=== PATIENT | female | born 1985 | race Caucasian/White ===

== ENCOUNTER 2019-06-10 10:00 | Observation (INO) | payer BC, SELFPAY ==
[2019-06-10] VITALS (30 sets, daily range): BP systolic 92–119; BP diastolic 53–85; PULSE 58–78; RESP 11–20; TEMP 36.6–37; O2SAT 95–100
--- NOTE | 2019-06-10 10:28 | ED.GENADUL_ITS ---
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 Patient is 7 weeks vaginal delivery. She had a hemorrhage. Patient reports that she lost approximately 7 units of blood and received 7 units transfusion. Patient reports she has been followed as an outpatient and her numbers specifically her H&H to continue to rise. Patient reports persistent vaginal bleeding since the time of her delivery for the last 7 weeks. At this time patient reports light but constant bleeding with no heavy clots. She does report abdominal pain approximately 7 out of 10 at this time. Denies radiating pain into her back. She does report increasing pain on the left compared to the right. Patient was seen in an emergency room yesterday at [facility] and ultimately had an ultrasound and labs for her complaints. Patient was advised that she needs a D&C and to call her doctor. Patient has been working with the wool puller through her but was advised to take her NuvaRing and the bleeding should improve. Patient is now seeking an second opinion and would like a dedicated obstetric specialist. Patient would prefer to transfer her care to [facility] doctors. Reviewed patient's medical record from [facility] yesterday patient had a CBC which revealed an H&H of 11.8 and 37.5 patient had normal electrolyte studies on a BMP. Patient had a urinalysis that was negative for obvious indication of infection positive for uro-bilirubin and blood on her urinalysis yesterday. Patient also had an ultrasound yesterday which reveal findings strongly suggestive of retained products of conception. Status post right oophorectomy. Minimal fluid in the cul-de-sac. The specifics are a uterus measuring 7.9 cm in longitudinal extent by 4.7 cm in the AP dimension by 5.6 cm in the transversely at the fundus. Uterus is retroverted. There is an echogenic vascular material noted within the endometrium measuring 3.0 x 2.2 x 2.4 cm the appearance suggest retained products of conception. Status post right oophorectomy. Left ovary measures 3.5 x 1.0 x 2.9 cm and appears unremarkable. Minimal fluid in the cul-de-sac. Spoke with Dr. eHnley regarding patient's case. She will check the operating room schedule for potential D&C today. Labs and IVs, fluids ordered to prepare for possible surgery. There is room in the operating room schedule today. Patient will have D&C today. [facility] General Date/Time Provider Initiated Documentation: 06/10/19 10:08 . HPI Narrative: Is a 34-year-old woman who presents to the ER today for persistent abdominal pain and vaginal bleeding. Patient is 7 weeks . Vaginal delivery resulting in a hemorrhage which she lost moderate amount of blood and did receive 4 units transfusion after her delivery. Patient reports persistent vaginal bleeding for the last 7 weeks. She has had multiple evaluations by her wool puller. She was advised to begin her NuvaRing and that her bleeding would resolve once her control normalized. Patient persistently frustrated given her pain and bleeding went to the emergency room last night ultimately had ultrasound as well as labs. Her H&H continue to rise however she did have retained products of conception on her ultrasound and was recommended that she have a D&C. Patient comes to [facility] emergency room today trying to arrange for a new obstetric doctor. Patient does report persistent abdominal pain in the lower abdomen and persistent bleeding. Patient reports occasional dizziness. Patient has been eating and drinking without difficulty but does report nausea. No active vomiting. No urinary urgency, frequency or dysuria. No significant bowel changes. 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 REGGIE: 2 Review of Systems All systems reviewed & are unremarkable except as noted in HPI and below Constitutional Constitutional: Denies chills, Reports fatigue, Denies fever(s), Reports headache(s) and Reports malaise ENT Ears, Nose, Mouth, and Throat: Reports headache(s) Gastrointestinal Gastrointestinal: Reports abdominal pain, Reports cramping, Denies diarrhea, Reports nausea and Denies vomiting Genitourinary Genitourinary: Reports abnormal vaginal bleeding, Denies urinary frequency, Denies dysuria, Denies flank pain, Denies vaginal odor and Denies vaginal pruritus Neurologic Neurologic: Reports headache(s) Endocrine Endocrine: Reports fatigue COUNTS INCLUDE 234 BEDS AT THE [facility] Medical History (Updated 06/10/19 @ 13:13 by Tracy Henley MD) Gestational hypertension (Acute) History of diet controlled gestational diabetes mellitus (GDM) (Acute) hemorrhage (Acute) Reactive airway disease (Acute) Secondary to seasonal allergies uses an inhaler as needed Retained products of conception (Acute) Surgical History (Updated 06/10/19 @ 13:10 by Tracy Henley MD) H/O laparoscopy (Chronic) History of cholecystectomy (Chronic) Social History (Updated 06/10/19 @ 13:12 by Tracy Henley MD) Smoking/Tobacco Use Status: Never Alcohol Intake: current Alcohol Intake frequency: holidays/special occasions only Drug use: Never Substance use type: does not use Adopted: No Household members: spouse and children Number of Children: 2 Education Level: college Do you need help understanding health information?: Never 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 Well hydrated. Alert and alert. HENMT: Head nomocephalic, normal to inspection. Atraumatic. Hearing grossly no rmal. External ear canal no erythema or swelling. TM normal bilaterally. Nose normal to inspection. No rhinnorhea. Normal facial exam. Oral mucosa normal. Tounge normal. Dentition normal. Normal posterior oropharynx. Uvula midline. EYES: General normal appearance. Alignment normal. Eyelids normal. Conjunctiva normal. Sclera normal. PERRL. NECK: Normal visual inspection. FROM. No lymphadenopathy. Trachea midline. No Midline tenderness. CHEST: Normal insepection of the chest. RESP: Normal respiratory effort. Speaking full sentences. No cough. No wheezing. No retractions. Clear to auscaltation. Breath sound equal and present bilaterally. CARDIO: No JVD. Normal PMI. Regular Rate. Regular Rhythm. Normal peripheral pulses. GI: Normal inspection of abdomen. No distension. Soft. Mild tenderness in the suprapubic area as well as the left lower abdomen.. Bowel sounds present in all 4 quadrants. No rebound. No gaurding. No peritoneal signs SKIN: Normal. Dry. No rashes. Linea nigra NEURO: Alert and awake. Speech clear. PSYCH: Normal affect. Cooperative. Course Vital Signs Vital signs: Vital Signs Temperature 37 C 06/10/19 10:09 Pulse 70 06/10/19 10:09 Respiratory Rate 18 06/10/19 10:09 Blood Pressure 117/69 06/10/19 10:09 Pulse Oximetry 100 06/10/19 10:09 Temperature 37 C 06/10/19 10:09 Temperature Source Oral 06/10/19 10:09 Pulse 70 06/10/19 10:09 Respiratory Rate 18 06/10/19 10:09 Respiratory Effort Non-Labored 06/10/19 10:17 Blood Pressure 117/69 06/10/19 10:09 Blood Pressure Position Supine 06/10/19 10:09 Pulse Oximetry 100 06/10/19 10:09 Oxygen Delivery Method Room Air 06/10/19 10:09 Oxygen Flow Rate 0 06/10/19 10:09 Pain Level 7 06/10/19 10:09
[2019-06-10 11:18] LABS: Bilirubin Negative (Negative); Blood Negative (Negative); Clarity Clear (Clear); Glucose Negative (Negative); Ketones Negative (Negative); Leukocyte Esterase Negative (Negative); Nitrite Negative (Negative); Urobilinogen 0.2 EU/dL (Up TO 0.2); pH 5.5 (5-8)
[2019-06-10] MEDS: Ondansetron O.D.T. 4 MG TABEF PO ×2 (11:30→18:03)
[2019-06-10] MEDS: Normal Saline Flush 10 ML SYR IVP ×2 (11:30→19:57)
[2019-06-10] MEDS: Normal Saline 1,000 ML 1000 ML IV (11:30)
[2019-06-10 11:38] LABS: Abs Immature Grans 0.01 k/cumm (0.0-0.09); Absolute Basophil Count 0.01 k/cumm (0.0-0.2); Absolute Eosinophil Count 0.06 k/cumm (0.0-0.7); Absolute Lymphocyte Count 1.25 k/cumm (1.2-3.4); Absolute Monocyte Count 0.23 k/cumm (0.11-0.7); Absolute Neutrophil Count 3.21 k/cumm (1.2-6.7); Basophils % 0.2; Eosinophils % 1.3; HCT 38.4 % (36.0-46.0); HGB 11.9 g/dL (12.0-15.5); Immature Grans % 0.2; Lymphocytes % 26.2; Mean Corpuscular Hemoglobin 28.5 pg (27.0-33.0); Mean Corpuscular Volume 92.1 fL (80-95); Mean Platelet Volume 9.8 fL (8.0-11.0); Monocytes % 4.8; Neutrophils % 67.3; Platelet Count 263 x1000/uL (130-400); RBC 4.17 m/cumm (4.00-5.20); White Blood Cell Count 4.77 k/cumm (4.4-10.8)
[2019-06-10 11:47] LABS: PTT Activated 27.2 sec (21.0-31.4); Prothrombin Time 10.1 sec (9.3-11.0)
[2019-06-10 11:56] LABS: ALT 28 U/L (14-59); AST 27 U/L (15-37); Albumin 4.2 g/dL (3.4-5.0); Alkaline Phosphatase 79 U/L (46-116); Anion Gap 8.9 mmol/L (3-11); BUN 12 mg/dL (7-18); Bilirubin, Total 0.5 mg/dL (0.2-1.0); CO2 26.1 mmol/L (21.0-32.0); CREATININE 0.86 mg/dL (0.55-1.02); Calcium 9.1 mg/dL (8.5-10.1); Chloride 105 mmol/L (98-107); Glucose 82 mg/dL (70-100); Potassium 4.5 mmol/L (3.5-5.1); Sodium 140 mmol/L (136-145)
[2019-06-10] MEDS: Normal Saline 1,000 ML 125 ML IV (12:30)
--- NOTE | 2019-06-10 13:03 | W.PM.HP.N ---
Date of service: 06/10/19 Time of Service: 13:03 Assessment and Plan Assessment and plan (1) Retained products of conception: Status: Acute Assessment and plan: I reviewed the patient's ultrasound report from [facility] obtained yesterday. Her current symptoms of daily bleeding increasing uterine tenderness have prompted me to recommend a repeat D&C I have contacted the ultrasound department so that I may utilize ultrasound guidance at the time of the procedure. She was informed of the risk of procedure including the risk of puncture to the uterus infection damage to surrounding structures including bowel bladder and blood vessels. She is aware the need for larger incision worse any of these comp occasions occur. She will receive antibiotics prior to and after the procedure. Informed consent was obtained and her questions were answered. History of Present Illness History of Present Illness Chief Complaint: Uterine bleeding and probable retained products of conception Narrative: Patient is a 34-year-old female who underwent a spontaneous vaginal delivery at [facility] on 04/18/2009 18 delivery was complicated by hemorrhage requiring transfusion 4 units packed red blood cells and a D&C for removal of a retained succenturiate lobe of the placenta. Patient's postoperative course has been uncomplicated however she is continued to have bleeding on a daily basis using approximately 2-3 pads per day. No complaint of fever or chills. She started NuvaRing for control last week and began to experience heavier than average bleeding and cramping. A ultrasound performed at [facility] on 06/09/2019 showed probable retained products of conception. Patient decided to transfer her care to [facility] for treatment. She was evaluated in the emergency department and I was consulted to discuss with the patient possibility of a surgery for retained products in the form of a D&C. Review of Systems Constitutional Constitutional: Reports fatigue and Denies fever(s) Cardiovascular Cardiovascular: Reports as per HPI (Tachycardia during has resolved.) Respiratory Respiratory: Reports system reviewed and no additional complaints, except as docu Gastrointestinal Gastrointestinal: Reports system reviewed and no additional complaints, except as docu Genitourinary Genitourinary: Reports abnormal vaginal bleeding, Reports light periods (Daily bleeding since delivery even after D&C) and Reports pelvic pain (Patient reports uterus is tender) Musculoskeletal Musculoskeletal: Reports system reviewed and no additional complaints, except as docu Integumentary/Breasts Skin/Breast: Reports as per HPI (Breast-feeding without difficulty. No breast engorgement or nipple crackin) Psychiatric Psychiatric: Reports system reviewed and no additional complaints, except as docu Endocrine Endocrine: Reports fatigue [facility] Medical History (Updated 06/10/19 @ 13:13 by Tracy Henley MD) Gestational hypertension (Acute) History of diet controlled gestational diabetes mellitus (GDM) (Acute) hemorrhage (Acute) Reactive airway disease (Acute) Secondary to seasonal allergies uses an inhaler as needed Retained products of conception (Acute) Surgical History (Updated 06/10/19 @ 13:10 by Tracy Henley MD) H/O laparoscopy (Chronic) History of cholecystectomy (Chronic) Social History (Updated 06/10/19 @ 13:12 by Tracy Henley MD) Smoking/Tobacco Use Status: Never Alcohol Intake: current Alcohol Intake frequency: holidays/special occasions only Drug use: Never Substance use type: does not use Adopted: No Household members: spouse and children Number of Children: 2 Education Level: college Do you need help understanding health information?: Never 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 Do you feel safe at home: Yes Do you feel safe in your relationship?: Yes Additional Social history: 04/18/2019 spontaneous vaginal delivery of male named Michael Daughter Hernando 10 years old Meds Home Medications and Allergies Home Medications Medication Instructions Recorded Confirmed Type cetirizine 10 mg PO DAILY PRN 06/10/19 06/10/19 History ferrous sulfate 325 mg PO DAILY 06/10/19 06/10/19 History polyethylene glycol 3350 [Miralax] 17 g PO DAILY 06/10/19 06/10/19 History propranolol 60 mg PO DAILY 06/10/19 06/10/19 History sumatriptan succinate [Imitrex] 100 mg PO ONCE PRN 06/10/19 06/10/19 History Allergies Allergy/AdvReac Type Severity Reaction Status Date / Time No Known Allergies Allergy Unverified 06/10/19 10:06 Exam Const General: no acute distress Nutritional Appearance: average body habitus Orientation: alert, awake and oriented x3 Chest Chest: normal inspection of the chest Resp Effort & Inspection: normal respiratory effort Auscultation: clear to auscultation bilaterally Cardio Rate: regular rate Rhythm: regular rhythm GI Inspection: normal to inspection Palpation: soft and no hepatosplenomegaly (No guarding rebound or masses) General: deferred (Bimanual exam deferred) Skin General skin exam: no rashes or lesions noted Extrem General: normal to inspection, full ROM and normal capillary refill Results Labs Result diagrams: 06/10/19 11:20 06/10/19 11:20 Labs: Laboratory Results - last 24 hr 06/10/19 06/10/19 06/10/19 11:05 11:20 11:20 WBC 4.77 RBC 4.17 Hgb 11.9 L Hct 38.4 MCV 92.1 MCH 28.5 MCHC 31.0 L RDW 14.0 Plt Count 263 MPV 9.8 Immature Gran % 0.2 Neutrophils % 67.3 Lymphocytes % 26.2 Monocytes % 4.8 Eosinophils % 1.3 Basophils % 0.2 Absolute Neutrophils 3.21 Absolute Lymphocytes 1.25 Absolute Monocytes 0.23 Absolute Eosinophils 0.06 Absolute Basophils 0.01 PT INR APTT Sodium 140 Potassium 4.5 Chloride 105 Carbon Dioxide 26.1 Anion Gap 8.9 BUN 12 Creatinine 0.86 Estimated GFR/1.73 m2 >= 60.00 Glucose 82 Calcium 9.1 Total Bilirubin 0.5 AST 27 ALT 28 Alkaline Phosphatase 79 Total Protein 8.0 Albumin 4.2 Urine Color Yellow Urine Clarity Clear Urine pH 5.5 Ur Specific Charlotte 1.020 Urine Protein Negative Urine Ketones Negative Urine Blood Negative Urine Nitrite Negative Urine Bilirubin Negative Urine Urobilinogen 0.2 Ur Leukocyte Esterase Negative Urine Glucose Negative Patient ABO/Rh Antibody Screen 06/10/19 06/10/19 11:20 11:20 WBC RBC Hgb Hct MCV MCH MCHC RDW Plt Count MPV Immature Gran % Neutrophils % Lymphocytes % Monocytes % Eosinophils % Basophils % Absolute Neutrophils Absolute Lymphocytes Absolute Monocytes Absolute Eosinophils Absolute Basophils PT 10.1 INR 1.0 APTT 27.2 Sodium Potassium Chloride Carbon Dioxide Anion Gap BUN Creatinine Estimated GFR/1.73 m2 Glucose Calcium Total Bilirubin AST ALT Alkaline Phosphatase Total Protein Albumin Urine Color Urine Clarity Urine pH Ur Specific Charlotte Urine Protein Urine Ketones Urine Blood Urine Nitrite Urine Bilirubin Urine Urobilinogen Ur Leukocyte Esterase Urine Glucose Patient ABO/Rh A Positive Antibody Screen Negative Last Vital Signs Temp 98.6 F 06/10/19 10:09 Pulse 59 L 06/10/19 11:00 Resp 18 06/10/19 10:09 BP 118/58 L 06/10/19 11:00 Pulse Ox 98 06/10/19 11:01
[2019-06-10] MEDS: Bupivacaine 0.25% Pres-Free 30 ML VIAL (13:46)
[2019-06-10] MEDS: Lactated Ringers 1,000 ML 75 ML IV (13:57)
[2019-06-10] MEDS: Methylergonovine 0.2 MG/ML VIAL (14:00)
--- NOTE | 2019-06-10 14:00 | POCSPONT_PTH ---
PATIENT: Servando Alonso LOC: OBS U#:[id number] AGE/SX: 34/F ROOM: OBS.303 RE06/10/[address]: Tracy Henley : 1985 BED: A DIS: 06/11/2019 SPEC #: [id number] RECD: 06/10/19 17:57 STATUS: MICHELE REQ #: [id number] GEENA: 06/10/19 14:[address]: Tracy Henley DEPT: Surgical Specimen RECD BY: Abimbola Nathan ENTERED: 06/10/19 17:59 SP TYPE: POCSPONT SHAJI DR: Rachael Seth Tissues: 1 - ,SPONTANEOUS Procedures: GROSS AND MICRO LEVEL 4 Comments: [id number]
[2019-06-10] MEDS: fentaNYL 100 MCG/2 ML VIAL IVP (15:33)
[2019-06-10 16:10] LABS: HCT 27.9 % (36.0-46.0); HGB 8.5 g/dL (12.0-15.5)
[2019-06-10] MEDS: Tranexamic Acid 1,000 MG/10 ML VIAL 1000 MG (17:56)
[2019-06-10] MEDS: oxyCODONE 5 mg/Acetaminophen 325 mg TAB PO ×2 (18:08→22:00)
[2019-06-10] MEDS: Ketorolac 30 MG/ML VIAL IVP (19:51)
[2019-06-10] MEDS: Docusate Sodium 100 MG CAP PO (19:51)
--- NOTE | 2019-06-10 19:52 | ROE_ITS ---
Date of service: 06/10/19 Time of Service: 19:52 Operative Note Operative Note DATE OF PROCEDURE: 06/10/19 PRE-OP DIAGNOSIS: Retained products of conception after spontaneous vaginal deliveries on 04/18/2019. POST-OP DIAGNOSIS: same PROCEDURE: Uterine dilation and surgical evacuation of uterine contents with ultrasound guidance ANESTHESIA: MAC ESTIMATED BLOOD LOSS: 500 COMPLICATIONS: None Patient was transported to: PACU Patient's condition: stable Indications: Patient is a 34-year old G3, P2 female who presented to the [facility] emergency department on the day of surgery with a report of daily uterine bleeding after a spontaneous vaginal delivery and hemorrhage secondary to a retained succenturiate lobe of the placenta. Patient had a ultrasound performed at outside hospital yesterday which showed retained products of conception. She traveled to [facility] to requests procedure be performed here. Findings: Uterus retroverted with 2 cm of thickened hypoechoic uterine lining. Solid white tissue was suction curetted and sent to pathology no tissue was obtained from a banjo curettage. After the procedure a repeat ultrasound showed a clear, intact endometrial cavity. Procedure Description: Patient was taken to the operating room via gurney and placed on the operating table in the dorsal supine position where monitored anesthesia care was administered. She was placed in the dorsolithotomy position in yellowfin stirrups prepped and draped in the usual sterile fashion. A surgical timeout was performed she received 1500 mg of cefazolin IV prior to the procedure. A bivalve speculum was placed in the vagina the anterior lip of the cervix was infiltrated with 1 cc of quarter percent Marcaine without epinephrine the anterior lip of the cervix was then grasped with a single-tooth tenaculum. A paracervical block was performed with infiltration of 5 cc of quarter percent Marcaine without epinephrine into the 4 and 8:00 paracervical spaces respectively. Cervix was then sequentially dilated to a maximum of 19 Katz. Uterus was sounded to 9 cm. A preprocedure ultrasound was performed of the u terine cavity with the above-noted findings. A 9 mm suction cannula was placed in the uterine cavity attached to suction in all 4 quadrants of the uterine cavity were sequentially suction curetted. Uterine cavity was then inspected with a transabdominal ultrasound. Banjo curette was used to explore the uterine cavity no further tissue was obtained. Brisk bleeding was noted from within the uterine cavity after uterine massage I am Methergine and IV oxytocin administration patient received IV Tranexamic Acid acid. With continued bleeding I placed a vaginal packing gauze into the uterine cavity repeated the uterine massage, removed the gauze and inserted a Bakri balloon. After successful placement of the Bakri balloon 420 cc of sterile normal saline were instilled into the balloon with a decrease in the brisk bleeding from the uterine cavity. There is an area of bleeding at the 3 o'clock position on the cervical os that was controlled with a [id number] suture of 0 Vicryl. A Villa catheter was placed to gravity drainage and clear john urine returned. After careful observation I felt that there was sufficient hemostasis to transfer the patient in the recovery area. All sponge lap needle counts correct x2
[2019-06-10] MEDS: Lactated Ringers 1,000 ML 125 ML IV (19:57)
[2019-06-10] MEDS: Omeprazole 20 MG CAPCR PO (19:57)
--- NOTE | 2019-06-10 20:44 | W.PM.PROGNOT ---
Date of Service Date of service: 06/10/19 Time of Service: 20:44 Assessment and Plan Assessment and plan (1) History of D&C: Status: Acute Assessment and plan: Plan is to continue to use the battery balloon overnight gradually decrease the amount of fluid within the balloon and if bleeding remains stable to discharge the patient to home tomorrow. A repeat H&H will be performed in the morning. Subjective Subjective Patient reports: other (Heartburn) Interval history since last seen: Patient underwent a cervical dilatation and suction evacuation of uterine contents in the OR's afternoon. Intraoperatively she had an estimated blood loss 500 cc for brisk bleeding after a portion of the retained placenta was removed. Bakri balloon was inserted with effective intraoperative tampade. In the recovery area that she had small amount of oozing from the cervix H&H was obtained and she was transferred to the center for continued observation overnight. Since that time she has tolerating regular diet had no bleeding from the vagina drainage from the drainage portion of the back re-balloon. She called the nursing staff to report some symptoms of heartburn and abdominal pressure. Physical exam was unremarkable 120 cc from [place] balloon were released. Exam Const General: no acute distress Nutritional Appearance: average body habitus Orientation: alert, awake and oriented x3 Resp Effort & Inspection: normal respiratory effort GI Inspection: normal to inspection Palpation: soft, no masses and tender (No guarding or rebound.) suprapubicly (With massage of the uterus.) Rectal Exam - female: deferred External Female Exam: external appearance normal Speculum Exam - Vagina: other (120 cc of normal saline was aspirated from the Bakri balloon with syringe) Skin General skin exam: no rashes or lesions noted Extrem General: normal to inspection, full ROM and normal capillary refill Objective Objective Clinical Data: Abnormal lab results 06/10/19 06/10/19 Range/Units 11:20 16:10 Hgb 11.9 L 8.5 L D (12.0-15.5) g/dL Hct 27.9 L D (36.0-46.0) % MCHC 31.0 L (32.0-36.0) g/dL Vital Signs Temperature 98.2 F 06/10/19 17:15 Temperature Source Oral 06/10/19 17:15 Pulse 71 06/10/19 20:14 Pulse Rhythm Regular 06/10/19 17:36 Respiratory Rate 18 10/29/19 20:14 Respiratory Effort 06/10/19 17:36 Respiratory Depth Normal 06/10/19 17:36 Respiratory Pattern Normal 06/10/19 17:36 Blood Pressure 100/56 L 06/10/19 20:14 Blood Pressure Mean 74 06/10/19 11:00 Blood Pressure Position Supine 06/10/19 10:09 Pulse Oximetry 98 06/10/19 20:14 Respiratory End-tidal CO2 33 06/10/19 16:35 Oxygen Delivery Method Room Air 06/10/19 20:14 Oxygen Flow Rate 0 06/10/19 20:14 Pain Level 5 06/10/19 19:51 Intake & Output 06/09/19 06/10/19 06/10/19 23:59 11:59 23:59 Intake Total 3050.25 / 3050.25 Output Total 650 / 650 Balance 2400.25 / 2400.25 Weight 169 lb 8.568 oz Intake: IV 3050.25 / 3050.25 Output: Drainage 0 / 0 bakri balloon 0 / 0 Urine 150 / 150 Estimated Blood Loss 500 / 500 Other: Urine Color Yellow Urine Appearance Clear Comment PACU. Emesis Description None Laboratory Results WBC 4.77 k/cumm (4.4-10.8) 06/10/19 11:20 RBC 4.17 m/cumm (4.00-5.20) 06/10/19 11:20 Hgb 8.5 g/dL (12.0-15.5) L D 06/10/19 16:10 Hct 27.9 % (36.0-46.0) L D 06/10/19 16:10 MCV 92.1 fL (80-95) 06/10/19 11:20 MCH 28.5 pg (27.0-33.0) 06/10/19 11:20 MCHC 31.0 g/dL (32.0-36.0) L 06/10/19 11:20 RDW 14.0 % (11.7-14.6) 06/10/19 11:20 Plt Count 263 x1000/uL (130-400) 06/10/19 11:20 MPV 9.8 fL (8.0-11.0) 06/10/19 11:20 Immature Gran % 0.2 06/10/19 11:20 Neutrophils % 67.3 06/10/19 11:20 Lymphocytes % 26.2 06/10/19 11:20 Monocytes % 4.8 06/10/19 11:20 Eosinophils % 1.3 06/10/19 11:20 Basophils % 0.2 06/10/19 11:20 Absolute Neutrophils 3.21 k/cumm (1.2-6.7) 06/10/19 11:20 Absolute Lymphocytes 1.25 k/cumm (1.2-3.4) 06/10/19 11:20 Absolute Monocytes 0.23 k/cumm (0.11-0.7) 06/10/19 11:20 Absolute Eosinophils 0.06 k/cumm (0.0-0.7) 06/10/19 11:20 Absolute Basophils 0.01 k/cumm (0.0-0.2) 06/10/19 11:20 PT 10.1 sec (9.3-11.0) 06/10/19 11:20 INR 1.0 (0.9-1.1) 06/10/19 11:20 APTT 27.2 sec (21.0-31.4) 06/10/19 11:20 Sodium 140 mmol/L (136-145) 06/10/19 11:20 Potassium 4.5 mmol/L (3.5-5.1) 06/10/19 11:20 Chloride 105 mmol/L (98-107) 06/10/19 11:20 Carbon Dioxide 26.1 mmol/L (21.0-32.0) 06/10/19 11:20 Anion Gap 8.9 mmol/L (3-11) 06/10/19 11:20 BUN 12 mg/dL (7-18) 06/10/19 11:20 Creatinine 0.86 mg/dL (0.55-1.02) 06/10/19 11:20 Estimated GFR/1.73 m2 >= 60.00 (mL/min/1.73m2) 06/10/19 11:20 Glucose 82 mg/dL (70-100) 06/10/19 11:20 Calcium 9.1 mg/dL (8.5-10.1) 06/10/19 11:20 Total Bilirubin 0.5 mg/dL (0.2-1.0) 06/10/19 11:20 AST 27 U/L (15-37) 06/10/19 11:20 ALT 28 U/L (14-59) 06/10/19 11:20 Alkaline Phosphatase 79 U/L (46-116) 06/10/19 11:20 Total Protein 8.0 g/dL (6.4-8.2) 06/10/19 11:20 Albumin 4.2 g/dL (3.4-5.0) 06/10/19 11:20 Urine Color Yellow (Yellow) 06/10/19 11:05 Urine Clarity Clear (Clear) 06/10/19 11:05 Urine pH 5.5 (5-8) 06/10/19 11:05 Ur Specific [place] 1.020 (1.005-1.025) 06/10/19 11:05 Urine Protein Negative mg/dL (Negative) 06/10/19 11:05 Urine Ketones Negative mg/dL (Negative) 06/10/19 11:05 Urine Blood Negative (Negative) 06/10/19 11:05 Urine Nitrite Negative (Negative) 06/10/19 11:05 Urine Bilirubin Negative (Negative) 06/10/19 11:05 Urine Urobilinogen 0.2 EU/dL (Up TO 0.2) 06/10/19 11:05 Ur Leukocyte Esterase Negative (Negative) 06/10/19 11:05 Urine Glucose Negative mg/dL (Negative) 06/10/19 11:05 Patient ABO/Rh A Positive 06/10/19 11:20 Antibody Screen Negative 06/10/19 11:20
[2019-06-11] MEDS: Ketorolac 30 MG/ML VIAL IVP ×3 (01:55→14:18)
[2019-06-11] MEDS: oxyCODONE 5 mg/Acetaminophen 325 mg TAB PO ×2 (01:55→07:24)
[2019-06-11] MEDS: Lactated Ringers 1,000 ML 125 ML IV (03:32)
[2019-06-11 03:40] VITALS: BP 88/54; PULSE 66; RESP 18; TEMP 36.4; O2SAT 98
[2019-06-11 05:02] VITALS: BP 97/57
[2019-06-11 07:30] VITALS: BP 99/59; PULSE 65; RESP 20; TEMP 36.4; O2SAT 99
[2019-06-11] MEDS: Docusate Sodium 100 MG CAP PO (08:45)
[2019-06-11] MEDS: Normal Saline Flush 10 ML SYR IVP (08:45)
--- NOTE | 2019-06-11 08:53 | W.PM.PROGNOT ---
Date of Service Date of service: 06/11/19 Time of Service: 08:53 Assessment and Plan Assessment and plan (1) History of D&C: Status: Acute Assessment and plan: Vital signs urine output in bleeding from the uterus stable since Bakri balloon placement. We will continue to remove more fluid from the balloon today. I will administer prophylactic antibiotics with the balloon in place. Recheck hematocrit this morning. Assist patient out of bed as tolerated. (2) Retained products of conception: Status: Acute Assessment and plan: I discussed with the patient whether or not additional estrogen was needed after the repeat D&C. I feel that the placement of the back re-balloon should be sufficient to prevent adherence of the uterine fontana or necrotic debris from forming within the uterus. Patient has a NuvaRing that she uses for contraception and she will restart that after discharge. Subjective Subjective Patient reports: still having pain (Uterine cramping) and tolerating a regular diet; denies bowel movement and nausea Interval history since last seen: Patient had 120 cc of the 420 cc in the Bakri balloon removed last evening. No increase in bleeding during the night. Small amount of serosanguineous drainage within the balloon drainage tube this morning. Minimal drainage within the bag. Urine output has remained brisk. She has been tolerating her diet. She reports cramping within the uterus. This morning an additional 120 cc of normal saline was removed from the battery balloon. CBC is currently pending. Exam Const General: no acute distress Orientation: alert, awake and oriented x3 Resp Effort & Inspection: normal respiratory effort GI Palpation: soft and no masses Speculum Exam - Vagina: normal vaginal discharge Skin General skin exam: no rashes or lesions noted Extrem General: normal to inspection, full ROM and normal capillary refill (SCDs are in place) Objective Objective Clinical Data: Abnormal lab results 06/10/19 06/10/19 Range/Units 11:20 16:10 Hgb 11.9 L 8.5 L D (12.0-15.5) g/dL Hct 27.9 L D (36.0-46.0) % MCHC 31.0 L (32.0-36.0) g/dL Vital Signs Temperature 97.5 F L 06/11/19 03:40 Temperature Source Tympanic 06/11/19 03:40 Pulse 66 06/11/19 03:40 Pulse Rhythm Regular 06/10/19 23:15 Respiratory Rate 18 06/11/19 03:40 Respiratory Effort Non-Labored 06/10/19 23:15 Respiratory Depth Normal 06/10/19 23:15 Respiratory Pattern Normal 06/10/19 23:15 Blood Pressure 97/57 L 06/11/19 05:02 Blood Pressure Mean 74 06/10/19 11:00 Blood Pressure Position Supine 06/10/19 10:09 Pulse Oximetry 98 06/11/19 03:40 Respiratory End-tidal CO2 33 06/10/19 16:35 Oxygen Delivery Method Room Air 06/11/19 03:40 Oxygen Flow Rate 0 06/11/19 03:40 Pain Level 7 06/11/19 08:45 Comment 06/11/19 03:40 Intake & Output 06/10/19 06/10/19 06/11/19 11:59 23:59 11:59 Intake Total 3750.25 / 3750.25 945.833 / 945.833 Output Total 1300 / 1300 1000 / 1000 Balance 2450.25 / 2450.25 -54.167 / -54.167 Weight 169 lb 8.568 oz Intake: IV 3750.25 / 3750.25 945.833 / 945.833 Output: Drainage 0 / 0 bakri balloon 0 / 0 Urine 800 / 800 1000 / 1000 Estimated Blood Loss 500 / 500 Other: Urine Color Pale Pale Yellow Yellow Urine Appearance Clear Clear Comment PACU. Emesis Description None Laboratory Results WBC 4.77 k/cumm (4.4-10.8) 06/10/19 11:20 RBC 4.17 m/cumm (4.00-5.20) 06/10/19 11:20 Hgb 8.5 g/dL (12.0-15.5) L D 06/10/19 16:10 Hct 27.9 % (36.0-46.0) L D 06/10/19 16:10 MCV 92.1 fL (80-95) 06/10/19 11:20 MCH 28.5 pg (27.0-33.0) 06/10/19 11:20 MCHC 31.0 g/dL (32.0-36.0) L 06/10/19 11:20 RDW 14.0 % (11.7-14.6) 06/10/19 11:20 Plt Count 263 x1000/uL (130-400) 06/10/19 11:20 MPV 9.8 fL (8.0-11.0) 06/10/19 11:20 Immature Gran % 0.2 06/10/19 11:20 Neutrophils % 67.3 06/10/19 11:20 Lymphocytes % 26.2 06/10/19 11:20 Monocytes % 4.8 06/10/19 11:20 Eosinophils % 1.3 06/10/19 11:20 Basophils % 0.2 06/10/19 11:20 Absolute Neutrophils 3.21 k/cumm (1.2-6.7) 06/10/19 11:20 Absolute Lymphocytes 1.25 k/cumm (1.2-3.4) 06/10/19 11:20 Absolute Monocytes 0.23 k/cumm (0.11-0.7) 06/10/19 11:20 Absolute Eosinophils 0.06 k/cumm (0.0-0.7) 06/10/19 11:20 Absolute Basophils 0.01 k/cumm (0.0-0.2) 06/10/19 11:20 PT 10.1 sec (9.3-11.0) 06/10/19 11:20 INR 1.0 (0.9-1.1) 06/10/19 11:20 APTT 27.2 sec (21.0-31.4) 06/10/19 11:20 Sodium 140 mmol/L (136-145) 06/10/19 11:20 Potassium 4.5 mmol/L (3.5-5.1) 06/10/19 11:20 Chloride 105 mmol/L (98-107) 06/10/19 11:20 Carbon Dioxide 26.1 mmol/L (21.0-32.0) 06/10/19 11:20 Anion Gap 8.9 mmol/L (3-11) 06/10/19 11:20 BUN 12 mg/dL (7-18) 06/10/19 11:20 Creatinine 0.86 mg/dL (0.55-1.02) 06/10/19 11:20 Estimated GFR/1.73 m2 >= 60.00 (mL/min/1.73m2) 06/10/19 11:20 Glucose 82 mg/dL (70-100) 06/10/19 11:20 Calcium 9.1 mg/dL (8.5-10.1) 06/10/19 11:20 Total Bilirubin 0.5 mg/dL (0.2-1.0) 06/10/19 11:20 AST 27 U/L (15-37) 06/10/19 11:20 ALT 28 U/L (14-59) 06/10/19 11:20 Alkaline Phosphatase 79 U/L (46-116) 06/10/19 11:20 Total Protein 8.0 g/dL (6.4-8.2) 06/10/19 11:20 Albumin 4.2 g/dL (3.4-5.0) 06/10/19 11:20 Urine Color Yellow (Yellow) 06/10/19 11:05 Urine Clarity Clear (Clear) 06/10/19 11:05 Urine pH 5.5 (5-8) 06/10/19 11:05 Ur Specific [place] 1.020 (1.005-1.025) 06/10/19 11:05 Urine Protein Negative mg/dL (Negative) 06/10/19 11:05 Urine Ketones Negative mg/dL (Negative) 06/10/19 11:05 Urine Blood Negative (Negative) 06/10/19 11:05 Urine Nitrite Negative (Negative) 06/10/19 11:05 Urine Bilirubin Negative (Negative) 06/10/19 11:05 Urine Urobilinogen 0.2 EU/dL (Up TO 0.2) 06/10/19 11:05 Ur Leukocyte Esterase Negative (Negative) 06/10/19 11:05 Urine Glucose Negative mg/dL (Negative) 06/10/19 11:05 Patient ABO/Rh A Positive 06/10/19 11:20 Antibody Screen Negative 06/10/19 11:20
[2019-06-11 09:21] LABS: HCT 24.3 % (36.0-46.0); HGB 7.3 g/dL (12.0-15.5); Mean Corpuscular Hemoglobin 28.3 pg (27.0-33.0); Mean Corpuscular Volume 94.2 fL (80-95); Mean Platelet Volume 9.4 fL (8.0-11.0); Platelet Count 224 x1000/uL (130-400); RBC 2.58 m/cumm (4.00-5.20); RBC Distribution Width 13.5 % (11.7-14.6); White Blood Cell Count 4.65 k/cumm (4.4-10.8)
[2019-06-11] MEDS: Lactated Ringers 1,000 ML 75 ML IV (10:41)
[2019-06-11] MEDS: Ondansetron O.D.T. 4 MG TABEF PO (11:52)
[2019-06-11 12:10] VITALS: BP 99/58; PULSE 65; RESP 20; TEMP 36.4; O2SAT 99
[2019-06-11] MEDS: HYDROmorphone 2 MG TAB PO (15:01)
[2019-06-11 15:59] LABS: HCT 23.7 % (36.0-46.0); HGB 7.3 g/dL (12.0-15.5)
[2019-06-11 16:00] VITALS: BP 98/61; PULSE 79; RESP 16; TEMP 36.7; O2SAT 98
--- NOTE | 2019-06-11 16:44 | DSE_ITS ---
DS: Diagnosis Discharge Diagnosis (1) History of D&C: Status: Acute (2) Retained products of conception: Status: Acute Discharge Plan Disposition Patient Disposition: HOME Condition: Fair Discharge Details Chief Complaint: [employer] Reason For Visit: RETAINED PRODUCTS OF CONCEPTION Admit Date/Time: 06/10/19 17:00 Admit Provider: Tracy Henley Attending Provider: Tracy Henley Primary Care Provider: Rachael Seth ED Provider: Alana Parkinson Hospital Course Hospital Course: Patient was admitted to the [facility] emergency department on 06/10/2019 after a pelvic ultrasound performed at [facility] showed products of conception within the uterine cavity. Patient had experienced a retained placenta requiring a D&C and transfusion of packed red blood cells after a spontaneous vaginal delivery on 04/18/2019 at [facility]. She continues to have daily uterine bleeding that increased in intensity the week prior to her presentation to [facility]. An emergency room visit at [facility] on 06/09/2018 was when the pelvic ultrasound was performed. Initial evaluation in the emergency department showed her vital signs to be stable with satisfactory recovery of her anemia. Decision was made to proceed with a suction D&C that afternoon. The time of surgery a pelvic ultrasound was performed showing complex intracavitary filling defect consistent with products of conception. Moderate amount of products of conception were obtained during the procedure. Repeat pelvic ultrasound showed no retained products remaining within the uterine cavity. The patient had a brisk amount of bleeding from the uterus after the procedure that did not respond to uterotonic's. As a result of Vicryl balloon was placed and was left in place for approximately 24 hours. The amount of fluid was gradually decreased with the device in place with no increase in uterine bleeding noted. Repeat hematocrit was stable from the morning after surgery she was able to tolerate a regular diet and ambulate successfully after Villa catheter and Vicryl balloon were discontinued. She had some nausea felt to be secondary to narcotic analgesia which resolved with change in the narcotic administered. She will be discharged to home on postop day #1 with instructions to remain out of work for at least a week. She will continue supplemental iron and continue her NuvaRing that she was using for control prior to the procedure. Prescription for Dilaudid will be provided to the patient for postop pain relief in addition to [id number] nonsteroidal anti-inflammatories Home Meds and New Rx's Prescriptions: No Action hydromorphone 2 mg tablet 2 mg PO Q6H MDD 4 PRN (Reason: pain) Qty: 5 RF: 0 polyethylene glycol 3350 [Miralax] 17 gram Powder In Packet 17 g PO DAILY RF: 0 propranolol 60 mg Capsule,Extended Release 24 Hr 60 mg PO DAILY RF: 0 ferrous sulfate 325 mg (65 mg iron) Tablet 325 mg PO DAILY RF: 0 sumatriptan succinate [Imitrex] 100 mg Tablet 100 mg PO ONCE PRNRF: 0 cetirizine 10 mg Capsule 10 mg PO DAILY PRNRF: 0 Discharge Instructions Additional Instructions: Call the office at on 06/12/2019 to make a follow-up appoint with Dr. Henley in approximately [address] Henley has recommended that you remain on work for the next week and has provided a work excuse. Stand Alone Forms: DSU Post Suction D+C Activity:: Activity as Tolerated Equipment/Supplies:: No Equipment Needed Diet:: As Tolerated Discharge Orders Discharge Orders: Discharge Order (Routine); Ordered 06/11/19 Ordered By: Tracy Henley DS: Summary Status at Discharge Functional status at discharge: independent ambulation Overall status at discharge: patient is progressing back to baseline Mental Status: mental status grossly normal Speech and Movement: speech and movement normal Mood: congruent mood Affect: normal affect Exam Const General: no acute distress Nutritional Appearance: average body habitus Orientation: alert, awake and oriented x3 Resp Effort & Inspection: normal respiratory effort GI Inspection: normal to inspection Palpation: soft (Nontender) General: deferred Extrem General: normal to inspection, full ROM and normal capillary refill Psych Mental Status: mental status grossly normal Speech and Movement: speech and movement normal Mood: congruent mood Affect: normal affect DS: Data Vitals/I&O Vitals and I&O: Vital Signs Temperature 97.5 F L 06/11/19 12:10 Temperature Source Oral 06/11/19 12:10 Pulse 65 06/11/19 12:10 Pulse Rhythm Regular 06/11/19 08:30 Respiratory Rate 20 06/11/19 12:10 Respiratory Effort Non-Labored 06/11/19 08:30 Respiratory Depth Normal 06/11/19 08:30 Respiratory Pattern Normal 06/11/19 08:30 Blood Pressure 99/58 L 06/11/19 12:10 Blood Pressure Mean 74 06/10/19 11:00 Blood Pressure Position Supine 06/10/19 10:09 Pulse Oximetry 99 06/11/19 12:10 Respiratory End-tidal CO2 33 06/10/19 16:35 Oxygen Delivery Method Room Air 06/11/19 12:10 Oxygen Flow Rate 0 06/11/19 12:10 Pain Level 8 06/11/19 15:03 Comment 06/11/19 12:30 Intake & Output 06/10/19 06/11/19 06/11/19 23:59 11:59 23:59 Intake Total 3750.25 / 3750.25 1045.833 / 2096.083 1050.25 / 2096.083 Output Total 1300 / 1300 1000 / 3250 2250 / 3250 Balance 2450.25 / 2450.25 45.833 / -1153.917 -1199.75 / -1153.917 Intake: IV 3750.25 / 3750.25 1045.833 / 2096.083 1050.25 / 2096.083 Output: Drainage 0 / 0 bakri balloon 0 / 0 Urine 800 / 800 1000 / 3250 2250 / 3250 Estimated Blood Loss 500 / 500 Other: Urine Color Pale Pale Yellow Yellow Yellow Urine Appearance Clear Clear Comment PACU. Emesis Description None Data Completed and Pending Labs on day of discharge: Labs from last 24 hours 06/11/19 06/11/19 15:55 09:12 WBC 4.65 RBC 2.58 L Hgb 7.3 L 7.3 L Hct 23.7 L 24.3 L MCV 94.2 MCH 28.3 MCHC 30.0 L RDW 13.5 Plt Count 224 MPV 9.4 PFSH Medical History (Updated 06/10/19 @ 13:13 by Tracy Henley MD) Gestational hypertension (Acute) History of diet controlled gestational diabetes mellitus (GDM) (Acute) hemorrhage (Acute) Reactive airway disease (Acute) Secondary to seasonal allergies uses an inhaler as needed Retained products of conception (Acute) Surgical History (Updated 06/10/19 @ 20:50 by Tracy Henley MD) H/O laparoscopy (Chronic) History of cholecystectomy (Chronic) History of D&C (Acute) 06/10/2019 for retained products of conception after 04/18/2019 Social History (Updated 06/10/19 @ 13:12 by Tracy Henley MD) Smoking/Tobacco Use Status: Never Alcohol Intake: current Alcohol Intake frequency: holidays/special occasions only Drug use: Never Substance use type: does not use Adopted: No Household members: spouse and children Number of Children: 2 Education Level: college Do you need help understanding health information?: Never 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
== END 2019-06-11 18:00 | disposition home or self-care (01) ==
LOC: ER 12:33 → DSU 13:26 → SUR 13:26 → DSU 06-11 09:59 → ER 06-11 09:59 → OBS 06-11 10:02 → DSU 06-11 10:23
PROVIDERS: Admitting Provider Obstetrics & Gynecology Gynecology; Emergency Provider Physician Assistant; PCP Pediatrics; Visit Provider Obstetrics & Gynecology Gynecology
PROC: 10D17ZZ Extraction of Products of Conception, Retained, Via Natural or Artificial Opening (ICD-10-PCS; CPT 59841; principal; 2019-06-10 12:30)
DX: O73.0 Retained placenta without hemorrhage (principal)
CPT/HCPCS: 59160; 36415; 80053; 85027; 86850; 86900; 86901; 88305; 96360; 96361; 99221; 99285; NC; 81003; 85014; 85018; 85025; 85610; 85730; 99284; G0378; J0690; J1885; J2210; J2405; J2590; J3010; J3490

== ENCOUNTER 2019-06-13 15:02 | Inpatient (IN) | payer BC, SELFPAY ==
[2019-06-13] VITALS (12 sets, daily range): BP systolic 105–128; BP diastolic 61–81; PULSE 70–84; RESP 14–16; TEMP 36.6–36.7; O2SAT 97–100
[2019-06-13] MEDS: Lactated Ringers 1,000 ML 125 ML IV (15:45)
[2019-06-13] MEDS: oxyCODONE 5 mg/Acetaminophen 325 mg TAB PO (16:00)
--- NOTE | 2019-06-13 16:00 | DI.US_ITS ---
EXAM: US PELVIS TRANSVAGINAL CLINICAL HISTORY: Evaluate hemorrhage TECHNIQUE: Ultrasound performed using standard protocol. Transabdominal and transvaginal exams wer e performed. COMPARISON: No exams were available for comparison FINDINGS: The uterus measures 8.2 x 4.7 x 6.6 cm. The endometrium appears heterogeneous and hypervascular. It m easures 14 millimeters in thickness. The findings could indicate retained products of conception. The re is a moderate amount of free fluid with debris. The left ovary appears normal. The right ovary wa s not seen. The kidneys were not evaluated. IMPRESSION: Thickened hypervascular endometrium could indicate retained products of conception. Moderate free fl uid with debris.
--- NOTE | 2019-06-13 16:49 | DI.VRAD_ITS ---
PROCEDURE INFORMATION: Exam: US Pelvis Limited, Transabdominal and US Pelvis, Transvaginal Exam date and time: 06/13/2019 4:27 PM Clinical history: 34 years old, female; Other: hemorrhage; Pelvic pain; Patient HX: PT is 8 weeks . PT had a d\T\c 8 weeks ago S/P delivery and has had heavy bleeding and anemia ever since. PT has continued to bleed heavily since then. PT had another d\T\c 06/10 and is still bleeding and cramping. TECHNIQUE: Imaging protocol: Real-time transabdominal and transvaginal pelvic ultrasound (limited) with image documentation. Transvaginal imaging was used for better evaluation of the endometrium and adnexa. COMPARISON: No relevant prior studies available. FINDINGS: Uterus/cervix: Mildly thickened endometrium measuring 14 mm in diameter with inhomogeneous echotexture suggesting retained products of conception. Uterus measures 8.2 x 4.7 x 6.6 cm. Inhomogeneous myometrial echotexture without focal mass. Right adnexa: Status post right oophorectomy. Left adnexa: Left ovary measures 2.8 x 1.2 x 1.3 cm. Subcentimeter follicles. Free fluid: Complex free fluid. IMPRESSION: 1. Complex free fluid. 2. Mildly thickened endometrium measuring 14 mm in diameter with inhomogeneous echotexture suggesting retained products of conception. Dictated and Authenticated by: Adalid Fernandes MD. Ordering:CYRUS Crawford MD
[2019-06-13] MEDS: HYDROmorphone 2 MG TAB PO ×2 (18:03→22:41)
[2019-06-13] MEDS: Normal Saline Flush 10 ML SYR IVP (22:26)
--- NOTE | 2019-06-13 23:09 | NUR.NOTE ---
Weighed Pads 2200 - 4ml.
[2019-06-14] MEDS: HYDROmorphone 2 MG TAB PO ×2 (03:53→15:33)
[2019-06-14] MEDS: Propranolol 60 MG CAPCR PO (07:57)
[2019-06-14] MEDS: Ferrous Sulfate 325 MG TAB PO (07:57)
[2019-06-14 08:01] VITALS: BP 121/84; PULSE 72; RESP 16; TEMP 36.6
[2019-06-14 08:41] LABS: HCT 29.8 % (36.0-46.0); HGB 9.6 g/dL (12.0-15.5); Mean Corp. HGB Concentration 32.2 g/dL (32.0-36.0); Mean Platelet Volume 9.4 fL (8.0-11.0); Platelet Count 220 x1000/uL (130-400); RBC 3.31 m/cumm (4.00-5.20); RBC Distribution Width 14.5 % (11.7-14.6); White Blood Cell Count 3.71 k/cumm (4.4-10.8)
[2019-06-14] MEDS: Normal Saline Flush 10 ML SYR IVP ×2 (09:43→20:30)
[2019-06-14 12:28] VITALS: BP 126/89; PULSE 71; RESP 16; TEMP 37.2
[2019-06-14 15:21] VITALS: BP 107/68; PULSE 71; RESP 16; TEMP 36.5; O2SAT 98
--- NOTE | 2019-06-14 18:00 | HPE_ITS ---
Date of service: 06/13/19 Time of Service: 17:00 Assessment and Plan Assessment and plan (1) Blood loss anemia: Status: Acute Assessment and plan: Will admit to the center for transfusion. The patient clinically has symptomatic blood loss anemia despite a [id number] hemoglobin of 7. We will obtain a pelvic ultrasound. Plan to repeat labs once the transfusion is complete and we will further delineate the plan of care at that point. (2) hemorrhage: Status: Acute History of Present Illness History of Present Illness Chief Complaint: Late hemorrhage and blood loss anemia Narrative: This is a 34-year-old female who presented to the office for evaluation. She originally had a normal spontaneous vaginal delivery at [facility] nearly 8 weeks ago. This delivery was complicated by hemorrhage. She presented here with significant vaginal bleeding earlier this week and was taken for a D&C. She did continue to hemorrhage during the D&C and was managed with a Bakri balloon. Repeat hemoglobin post procedure was 7. She did not take a transfusion at that time her bleeding remained well controlled even following removal of the balloon and she was eventually discharged home. She did present to the office today with extreme weakness, lightheadedness and difficulty with walking. She has had some heavy bleeding since the time of her most recent surgery. She denies any fevers or chills but does have some mild cramping abdominal pain. Review of Systems All systems reviewed & are unremarkable except as noted in HPI and below PFSH Medical History (Updated 06/14/19 @ 18:04 by Ty Cornelius MD) Gestational hypertension (Acute) History of diet controlled gestational diabetes mellitus (GDM) (Acute) hemorrhage (Acute) Reactive airway disease (Acute) Secondary to seasonal allergies uses an inhaler as needed Retained products of conception (Acute) Surgical History (Updated 06/10/19 @ 20:50 by Tracy Henley MD) H/O laparoscopy (Chronic) History of cholecystectomy (Chronic) History of D&C (Acute) 06/10/2019 for retained products of conception after 04/18/2019 Social History (Updated 06/10/19 @ 13:12 by Tracy Henley MD) Smoking/Tobacco Use Status: Never Alcohol Intake: current Alcohol Intake frequency: holidays/special occasions only Drug use: Never Substance use type: does not use Adopted: No Household members: spouse and children Number of Children: 2 Education Level: college Do you need help understanding health information?: Never 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 [facility] Sexually active: Yes Do you feel safe at home: Yes Do you feel safe in your relationship?: Yes Additional Social history: 04/18/2019 spontaneous vaginal delivery of male infant named Michael Daughter Todd 10 years old Meds Home Medications and Allergies Home Medications Medication Instructions Recorded Confirmed Type cetirizine 10 mg PO DAILY PRN 06/10/19 06/13/19 History ferrous sulfate 325 mg PO DAILY 06/10/19 06/13/19 History polyethylene glycol 3350 [Miralax] 17 g PO DAILY 06/10/19 06/13/19 History propranolol 60 mg PO DAILY 06/10/19 06/13/19 History sumatriptan succinate [Imitrex] 100 mg PO ONCE PRN 06/10/19 06/13/19 History hydromorphone 2 mg tablet 2 mg PO Q6H PRN #5 tab MDD 4 06/11/19 06/13/19 Rx Allergies Allergy/AdvReac Type Severity Reaction Status Date / Time No Known Allergies Allergy Unverified 06/13/19 12:59 Exam HENMT Other: Conjunctive are pale. Mucosa is dry Resp Auscultation: clear to auscultation bilaterally Cardio Rate: regular rate Rhythm: regular rhythm GI Other: Soft. Mild tenderness to palpation in the low midline abdomen. No rebound or guarding. No peritoneal signs. Results Labs Result diagrams: 06/14/19 19:51 Labs: Laboratory Results - last 24 hr 06/13/19 06/14/19 06/14/19 15:45 08:07 19:51 WBC 3.71 L Cancelled RBC 3.31 L Cancelled Hgb 9.6 L D Cancelled Hct 29.8 L D Cancelled MCV 90.0 Cancelled MCH 29.0 Cancelled MCHC 32.2 Cancelled RDW 14.5 Cancelled Plt Count 220 Cancelled MPV 9.4 Cancelled Immature Gran % Cancelled Neutrophils % Cancelled Band Neutrophils % Cancelled Lymphocytes % Cancelled Atypical Lymphs % Cancelled Monocytes % Cancelled Eosinophils % Cancelled Basophils % Cancelled Metamyelocytes % Cancelled Myelocytes % Cancelled Promyelocytes % Cancelled Absolute Neutrophils Cancelled Absolute Lymphocytes Cancelled Absolute Monocytes Cancelled Absolute Eosinophils Cancelled Absolute Basophils Cancelled Nucleated RBCs Cancelled Differential Comment Cancelled Other Cell Type Cancelled RBC Morphology Cancelled Polychromasia Cancelled Hypochromasia Cancelled Poikilocytosis Cancelled Basophilic Stippling Cancelled Anisocytosis Cancelled Microcytosis Cancelled Macrocytosis Cancelled Spherocytes Cancelled Target Cells Cancelled Tear Drop Cells Cancelled Ovalocytes Cancelled Stomatocytes Cancelled [place] Bodies Cancelled [place] Cells Cancelled Acanthocytes (Spur) Cancelled Schistocytes Cancelled Patient ABO/Rh A Positive Antibody Screen Negative Crossmatch See Detail Last Vital Signs Temp 97.7 F 06/14/19 15:21 Pulse 71 06/14/19 15:21 Resp 16 06/14/19 15:21 BP 107/68 06/14/19 15:21 Pulse Ox 98 06/14/19 15:21
--- NOTE | 2019-06-14 18:05 | PGE_ITS ---
Date of Service Date of service: 06/14/19 Time of Service: 18:10 Assessment and Plan Assessment and plan (1) Blood loss anemia: Status: Acute Assessment and plan: She was observed carefully overnight and through the day today out of concern for the material still within the endometrial cavity. As she has not been symptomatic and her bleeding has been minimal we will forego consideration of a repeat D&C at this point. More than likely this represents a small amount of organized clot. Should her bleeding become heavy or should she develop fevers or chills I would consider D&C at that point. In terms of the free fluid outside of the uterus I believe that this likely represents retrograde expulsion of blood from when the Bakri balloon was placed several days ago. The patient has no signs of acute intra-abdominal bleeding on clinical exam. Her hemoglobin has remained stable on repeat draw. Plan to monitor her an additional night but if her bleeding remains minimal and lab values also remained stable I would consider discharge home tomorrow. (2) hemorrhage: Status: Acute (3) History of D&C: Status: Acute Subjective Subjective Interval history since last seen: The patient did have a pelvic ultrasound which demonstrated some material within the endometrial cavity which could either be organized clot or retained products of conception. The patient is not bleeding heavily at this point but does have some continued abdominal pain. In addition on the pelvic ultrasound there was a moderate amount of free fluid noted with layering in the cul-de-sac also suggestive of blood and clots. She has remained afebrile and bleeding has been minimal. She reports that she did feel markedly better after the blood transfusion but today still did not feel 100%. She reports feeling tired and weak. Exam GI Other: Mild tenderness to palpation in the low midline abdomen. No significant clinical change from her previous exam yesterday. Objective Objective Clinical Data: Abnormal lab results 06/13/19 06/14/19 Range/Units 15:45 08:07 WBC 3.71 L (4.4-10.8) k/cumm RBC 3.31 L (4.00-5.20) m/cumm Hgb 9.6 L D (12.0-15.5) g/dL Hct 29.8 L D (36.0-46.0) % Crossmatch See Detail Vital Signs Temperature 97.7 F 06/14/19 15:21 Temperature Source Oral 06/14/19 15:21 Pulse 71 06/14/19 15:21 Pulse Rhythm Regular 06/14/19 15:22 Respiratory Rate 16 06/14/19 15:21 Respiratory Effort 06/14/19 15:22 Respiratory Depth Normal 06/14/19 15:22 Respiratory Pattern Normal 06/14/19 15:22 Blood Pressure 107/68 06/14/19 15:21 Pulse Oximetry 98 06/14/19 15:21 Oxygen Delivery Method Room Air 06/14/19 15:21 Oxygen Flow Rate 0 06/14/19 15:21 Pain Level 7 06/14/19 15:33 Comment 06/13/19 16:35 Intake & Output 06/13/19 06/14/19 06/14/19 23:59 11:59 23:59 Intake Total 1224 / 1224 1000 / 1000 Output Total 1150 / 1150 400 / 400 Balance 74 / 74 1000 / 600 -400 / 600 Weight 363 lb 12.203 oz Intake: IV 1000 / 1000 Blood Product 1224 / 1224 Rbc Leuko Reduced Unit 618 / 618 [id number] Rbc Leuko Reduced Unit 606 / 606 [id number] Output: Urine 1150 / 1150 400 / 400 Other: Urine Color [place] Yellow Urine Appearance Clear Clear Clear Urine Odor None None Comment Pt states she passed blood clot with this void Voiding Methods Toilet Toilet Laboratory Results WBC Cancelled 06/14/19 19:51 RBC Cancelled 06/14/19 19:51 Hgb Cancelled 06/14/19 19:51 Hct Cancelled 06/14/19 19:51 MCV Cancelled 06/14/19 19:51 MCH Cancelled 06/14/19 19:51 MCHC Cancelled 06/14/19 19:51 RDW Cancelled 06/14/19 19:51 Plt Count Cancelled 06/14/19 19:51 MPV Cancelled 06/14/19 19:51 Immature Gran % Cancelled 06/14/19 19:51 Neutrophils % Cancelled 06/14/19 19:51 Band Neutrophils % Cancelled 06/14/19 19:51 Lymphocytes % Cancelled 06/14/19 19:51 Atypical Lymphs % Cancelled 06/14/19 19:51 Monocytes % Cancelled 06/14/19 19:51 Eosinophils % Cancelled 06/14/19 19:51 Basophils % Cancelled 06/14/19 19:51 Metamyelocytes % Cancelled 06/14/19 19:51 Myelocytes % Cancelled 06/14/19 19:51 Promyelocytes % Cancelled 06/14/19 19:51 Absolute Neutrophils Cancelled 06/14/19 19:51 Absolute Lymphocytes Cancelled 06/14/19 19:51 Absolute Monocytes Cancelled 06/14/19 19:51 Absolute Eosinophils Cancelled 06/14/19 19:51 Absolute Basophils Cancelled 06/14/19 19:51 Nucleated RBCs Cancelled 06/14/19 19:51 Differential Comment Cancelled 06/14/19 19:51 Other Cell Type Cancelled 06/14/19 19:51 RBC Morphology Cancelled 06/14/19 19:51 Polychromasia Cancelled 06/14/19 19:51 Hypochromasia Cancelled 06/14/19 19:51 Poikilocytosis Cancelled 06/14/19 19:51 Basophilic Stippling Cancelled 06/14/19 19:51 Anisocytosis Cancelled 06/14/19 19:51 Microcytosis Cancelled 06/14/19 19:51 Macrocytosis Cancelled 06/14/19 19:51 Spherocytes Cancelled 06/14/19 19:51 Target Cells Cancelled 06/14/19 19:51 Tear Drop Cells Cancelled 06/14/19 19:51 Ovalocytes Cancelled 06/14/19 19:51 Stomatocytes Cancelled 06/14/19 19:51 Esp[place] Bodies Cancelled 06/14/19 19:51 [place] Cells Cancelled 06/14/19 19:51 Acanthocytes (Spur) Cancelled 06/14/19 19:51 Schistocytes Cancelled 06/14/19 19:51 Patient ABO/Rh A Positive 06/13/19 15:45 Antibody Screen Negative 06/13/19 15:45 Crossmatch See Detail 06/13/19 15:45
[2019-06-14 20:30] VITALS: BP 115/72; PULSE 69; RESP 16; TEMP 36.9; O2SAT 99
[2019-06-14] MEDS: Ketorolac 30 MG/ML VIAL IVP (20:30)
[2019-06-15] MEDS: Ketorolac 30 MG/ML VIAL IVP ×2 (01:11→08:40)
[2019-06-15] MEDS: Normal Saline Flush 10 ML SYR IVP ×2 (01:12→08:43)
[2019-06-15 01:19] VITALS: BP 115/71; PULSE 66; RESP 16; TEMP 36.7; O2SAT 98
[2019-06-15 08:05] VITALS: BP 123/72; PULSE 81; RESP 16; TEMP 36.8; O2SAT 98
[2019-06-15 08:05] LABS: Absolute Basophil Count 0.01 k/cumm (0.0-0.2); Absolute Eosinophil Count 0.05 k/cumm (0.0-0.7); Absolute Lymphocyte Count 0.94 k/cumm (1.2-3.4); Absolute Neutrophil Count 1.86 k/cumm (1.2-6.7); Basophils % 0.3; Eosinophils % 1.6; HCT 33.8 % (36.0-46.0); HGB 10.6 g/dL (12.0-15.5); Lymphocytes % 29.7; Mean Corp. HGB Concentration 31.4 g/dL (32.0-36.0); Mean Corpuscular Hemoglobin 28.5 pg (27.0-33.0); Mean Corpuscular Volume 90.9 fL (80-95); Mean Platelet Volume 9.5 fL (8.0-11.0); Monocytes % 9.5; Neutrophils % 58.9; Platelet Count 255 x1000/uL (130-400); RBC 3.72 m/cumm (4.00-5.20); White Blood Cell Count 3.16 k/cumm (4.4-10.8)
[2019-06-15] MEDS: Propranolol 60 MG CAPCR PO (08:39)
--- NOTE | 2019-06-15 09:04 | PGE_ITS ---
Date of Service Date of service: 06/15/19 Time of Service: 09:04 Assessment and Plan Assessment and plan (1) Blood loss anemia: Status: Acute Assessment and plan: S/P 2 units PRBCs administered on HD 1. Doing well. Will plan for discharge home this morning. Follow up in the clinic this week. Will also repeat ultrasound later in the week. (2) History of D&C: Status: Acute (3) hemorrhage: Status: Acute Subjective Subjective Interval history since last seen: Doing well this morning. Feels markedly better today. Tolerating regular diet. No nausea. Minimal vaginal bleeding. Afebrile. Objective Objective Clinical Data: Abnormal lab results 06/15/19 Range/Units 06:45 WBC 3.16 L (4.4-10.8) k/cumm RBC 3.72 L (4.00-5.20) m/cumm Hgb 10.6 L (12.0-15.5) g/dL Hct 33.8 L (36.0-46.0) % MCHC 31.4 L (32.0-36.0) g/dL RDW 15.0 H (11.7-14.6) % Absolute Lymphocytes 0.94 L (1.2-3.4) k/cumm Vital Signs Temperature 98.2 F 06/15/19 08:05 Temperature Source Oral 06/15/19 08:05 Pulse 81 06/15/19 08:05 Pulse Rhythm Regular 06/14/19 20:30 Respiratory Rate 16 06/15/19 08:05 Respiratory Effort Non-Labored 06/14/19 20:30 Respiratory Depth Normal 06/14/19 20:30 Respiratory Pattern Normal 06/14/19 20:30 Blood Pressure 123/72 06/15/19 08:05 Pulse Oximetry 98 06/15/19 08:05 Oxygen Delivery Method Room Air 06/15/19 08:05 Oxygen Flow Rate 0 06/15/19 08:05 Pain Level 4 06/15/19 08:40 Comment 06/13/19 16:35 Intake & Output 06/14/19 06/14/19 06/15/19 11:59 23:59 10:59 Intake Total 1000 / 1000 Output Total 400 / 400 Balance 1000 / 600 -400 / 600 Weight 169 lb 8.5 oz Intake: IV 1000 / 1000 Output: Urine 400 / 400 Other: Urine Color Yellow Urine Appearance Clear Clear Urine Odor None Comment Pt states she passed blood clot with this void Voiding Methods Toilet Laboratory Results WBC 3.16 k/cumm (4.4-10.8) L 06/15/19 06:45 RBC 3.72 m/cumm (4.00-5.20) L 06/15/19 06:45 Hgb 10.6 g/dL (12.0-15.5) L 06/15/19 06:45 Hct 33.8 % (36.0-46.0) L 06/15/19 06:45 MCV 90.9 fL (80-95) 06/15/19 06:45 MCH 28.5 pg (27.0-33.0) 06/15/19 06:45 MCHC 31.4 g/dL (32.0-36.0) L 06/15/19 06:45 RDW 15.0 % (11.7-14.6) H 06/15/19 06:45 Plt Count 255 x1000/uL (130-400) 06/15/19 06:45 MPV 9.5 fL (8.0-11.0) 06/15/19 06:45 Immature Gran % 0.0 06/15/19 06:45 Neutrophils % 58.9 06/15/19 06:45 Band Neutrophils % Cancelled 06/14/19 19:51 Lymphocytes % 29.7 06/15/19 06:45 Atypical Lymphs % Cancelled 06/14/19 19:51 Monocytes % 9.5 06/15/19 06:45 Eosinophils % 1.6 06/15/19 06:45 Basophils % 0.3 06/15/19 06:45 Metamyelocytes % Cancelled 06/14/19 19:51 Myelocytes % Cancelled 06/14/19 19:51 Promyelocytes % Cancelled 06/14/19 19:51 Absolute Neutrophils 1.86 k/cumm (1.2-6.7) 06/15/19 06:45 Absolute Lymphocytes 0.94 k/cumm (1.2-3.4) L 06/15/19 06:45 Absolute Monocytes 0.30 k/cumm (0.11-0.7) 06/15/19 06:45 Absolute Eosinophils 0.05 k/cumm (0.0-0.7) 06/15/19 06:45 Absolute Basophils 0.01 k/cumm (0.0-0.2) 06/15/19 06:45 Nucleated RBCs Cancelled 06/14/19 19:51 Differential Comment Cancelled 06/14/19 19:51 Other Cell Type Cancelled 06/14/19 19:51 RBC Morphology Cancelled 06/14/19 19:51 Polychromasia Cancelled 06/14/19 19:51 Hypochromasia Cancelled 06/14/19 19:51 Poikilocytosis Cancelled 06/14/19 19:51 Basophilic Stippling Cancelled 06/14/19 19:51 Anisocytosis Cancelled 06/14/19 19:51 Microcytosis Cancelled 06/14/19 19:51 Macrocytosis Cancelled 06/14/19 19:51 Spherocytes Cancelled 06/14/19 19:51 Target Cells Cancelled 06/14/19 19:51 Tear Drop Cells Cancelled 06/14/19 19:51 Ovalocytes Cancelled 06/14/19 19:51 Stomatocytes Cancelled 06/14/19 19:51 [place] Bodies Cancelled 06/14/19 19:51 [place] Cells Cancelled 06/14/19 19:51 Acanthocytes (Spur) Cancelled 06/14/19 19:51 Schistocytes Cancelled 06/14/19 19:51 Patient ABO/Rh A Positive 06/13/19 15:45 Antibody Screen Negative 06/13/19 15:45 Crossmatch See Detail 06/13/19 15:45
--- NOTE | 2019-06-15 09:23 | W.PM.DSUDISC ---
Discharge Plan Disposition Patient Disposition: HOME Condition: Stable Discharge Details Reason For Visit: BLOOD LOSS ANEMIA Admit Date/Time: 06/13/19 15:02 Admit Provider: Ty Cornelius Attending Provider: Ty Cornelius Primary Care Provider: [facility] Course Hospital Course: The patient was admitted for management of symptomatic blood loss anemia following delayed hemorrhage managed with D&C and a Bakri balloon this week. She was transfused 2 units of PRBCs on HD 1. A pelvic ultrasound did demonstrate a region of mixed echogenicity within the endometrium thought to either be either clot or retained POC. Free fluid was also noted outside the uterus but is felt likely related to retrograde hemorrhage through the fallopian tubes when the Bakri balloon was placed. She remained hemodynamically stable throughout admission and afebrile. She is felt suitable for discharge home on HD 3. Will follow up in the clinic this week and repeat ultrasound this week as well. Home Meds and New Rx's Prescriptions: Continued polyethylene glycol 3350 [Miralax] 17 gram Powder In Packet 17 g PO DAILY RF: 0 propranolol 60 mg Capsule,Extended Release 24 Hr 60 mg PO DAILY RF: 0 ferrous sulfate 325 mg (65 mg iron) Tablet 325 mg PO DAILY RF: 0 sumatriptan succinate [Imitrex] 100 mg Tablet 100 mg PO ONCE PRNRF: 0 cetirizine 10 mg Capsule 10 mg PO DAILY PRNRF: 0 Discontinued hydromorphone 2 mg tablet 2 mg PO Q6H MDD 4 PRN (Reason: pain) Qty: 5 RF: 0 Discharge Instructions Activity:: Activity as Tolerated Equipment/Supplies:: No Equipment Needed Diet:: As Tolerated Discharge Orders Discharge Orders: Discharge Order (Routine); Ordered 06/15/19 Ordered By: Ty Cornelius DS: Diagnosis Discharge Diagnosis (1) Blood loss anemia: Status: Acute (2) History of D&C: Status: Acute (3) hemorrhage: Status: Acute
== END 2019-06-15 11:00 | disposition home or self-care (01) | DRG 776 ==
PROVIDERS: Admitting Provider Obstetrics & Gynecology; PCP Pediatrics; Visit Provider Obstetrics & Gynecology
DX: O72.2 Delayed and secondary postpartum hemorrhage (principal); D62 Acute posthemorrhagic anemia; O90.81 Anemia of the puerperium
CPT/HCPCS: 36415; 36430; 85027; 86850; 86900; 86901; 86920; 99223; 99233; 76830; 76856; 85025; J1885; J3490; P9016

== ENCOUNTER 2019-06-18 09:41 | Outpatient (CLI) | payer BC, SELFPAY ==
--- NOTE | 2019-06-18 12:15 | DI.US_ITS ---
EXAM: US PELVIS AND TRANSVAGINAL CLINICAL HISTORY: Late hemorrhage. Reevaluate for POC, D50.0 IRON DEFICIENC ANEMIA SECON ADRIENNE TO BLOOD LOSS (CHRONIC) TECHNIQUE: Ultrasound performed using standard protocol. Pelvic ultrasound was performed transabdo minally and transvaginally. COMPARISON: US PELVIS AND TRANSVAGINAL from 06/13/2019 FINDINGS: Please see the accompanying data sheet for measurements of the pelvic structures. Prior ultrasound o f June 13 showed abnormally thickened heterogeneous endometrium suspicious for retained products of conception. On today's examination, the endometrium is poorly visualized. There is an apparent complex mass-like finding adjacent to the uterine fundus, which may represent an extrauterine resolvi ng hematoma. Mass not excluded. Heterogeneity of the uterine fundus also noted, there is a poorly d efined border between the fundus and the aforementioned suprafundal lesion or collection. Right ovary has been surgically removed. Left ovary has a normal follicular appearance. Small quant ity of free fluid in the cul-de-sac which may be contiguous with the suprauterine collection/mass. IMPRESSION: Approximately 5 cm in diameter complex collection associated with or lying just above the uterine fun dus. The findings are consistent with hematoma. The mass is poorly defined in its uterine border an d the possibility of mass or collection originating from the uterus is not excluded. Additionally, t here is heterogeneity of the fundal uterine myometrium which is nonspecific, possible fibroid versus other mass. Appropriate follow-up studies requested.
[2019-06-18 14:09] LABS: Abs Immature Grans 0.01 k/cumm (0.0-0.09); Absolute Basophil Count 0.02 k/cumm (0.0-0.2); Absolute Eosinophil Count 0.08 k/cumm (0.0-0.7); Absolute Lymphocyte Count 1.33 k/cumm (1.2-3.4); Absolute Monocyte Count 0.45 k/cumm (0.11-0.7); Absolute Neutrophil Count 2.53 k/cumm (1.2-6.7); Basophils % 0.5; Eosinophils % 1.8; HCT 37.6 % (36.0-46.0); HGB 11.9 g/dL (12.0-15.5); Immature Grans % 0.2; Lymphocytes % 30.1; Mean Corp. HGB Concentration 31.6 g/dL (32.0-36.0); Mean Corpuscular Hemoglobin 28.5 pg (27.0-33.0); Mean Corpuscular Volume 90.2 fL (80-95); Mean Platelet Volume 9.5 fL (8.0-11.0); Monocytes % 10.2; Neutrophils % 57.2; Platelet Count 347 x1000/uL (130-400); RBC 4.17 m/cumm (4.00-5.20); RBC Distribution Width 14.5 % (11.7-14.6); White Blood Cell Count 4.42 k/cumm (4.4-10.8)
== END 2019-06-18 10:01 ==
PROVIDERS: Obstetrics & Gynecology Gynecology; PCP Pediatrics; Visit Provider Obstetrics & Gynecology
DX: D50.0 Iron deficiency anemia secondary to blood loss (chronic) (principal); R19.00 Intra-abdominal and pelvic swelling, mass and lump, unspecified site; O72.2 Delayed and secondary postpartum hemorrhage
CPT/HCPCS: 36415; 76830; 76856; 85025

== ENCOUNTER 2019-08-04 09:27 | Emergency (ER) | payer BC, SELFPAY ==
[2019-08-04] VITALS (17 sets, daily range): BP systolic 112–125; BP diastolic 68–74; PULSE 60–72; RESP 15–19; TEMP 36.6; O2SAT 98–100
--- NOTE | 2019-08-04 10:04 | W.ED.GENAD ---
Discharge Plan Disposition Patient Disposition: HOME Condition: Improving Discharge Details Chief Complaint: [employer] Clinical Impression: Abnormal vaginal bleeding, Heavy menses Primary Care Provider: See Cottrell ED Provider: Chetna Mcgill Home Meds and New Rx's Prescriptions: Continued sertraline 25 mg tablet 25 mg PO DAILY Qty: 30 RF: 1 polyethylene glycol 3350 [Miralax] 17 gram Powder In Packet 17 g PO DAILY RF: 0 propranolol 60 mg Capsule,Extended Release 24 Hr 60 mg PO DAILY RF: 0 sumatriptan succinate [Imitrex] 100 mg Tablet 100 mg PO ONCE PRNRF: 0 cetirizine 10 mg Capsule 10 mg PO DAILY PRNRF: 0 prednisone 20 mg Tablet 20 mg PO DAILY RF: 0 sulfamethoxazole-trimethoprim [Bactrim DS] 800-160 mg Tablet 1 tab PO BID RF: 0 Discharge Instructions Instructions: Menstruation (ED), Dysfunctional Uterine Bleeding (ED) Additional Instructions: Your presentation can likely be due to the start of your menses after the recent of her child. The first episode of menses can often be irregular. The bleeding likely also coincides with the recent removal of your NuvaRing. Drink plenty fluids get plenty of rest. Call the [employer] office if your symptoms persist for further evaluation. If you have any worsening or new concerning symptoms, return to the emergency department. Discharge Data Discharge Physician: Chetna Mcgill Medical Decision Making 0930 -- 34-year-old female A3 L2 who is almost 4 months status post normal spontaneous vaginal delivery complicated by hemorrhage due to retained products of conception with D&C performed on 06/10/[address] Henley who presents with heavy vaginal bleeding since last evening. Patient states she removed her own NuvaRing 5 days ago. She states she thinks this is her first menses . She states since last night she has had heavy vaginal bleeding with small and medium size clots. She states she does not fully saturate pads that she is using but with wiping notes heavy amount of bleeding. She states she is currently being treated for sinus infection with Bactrim and prednisone so has had some dizziness and fatigue associated with this but unsure if this is worse due to her bleeding. She denies any fever, chest pain, shortness of breath. She does also admit to intermittent left lower quadrant abdominal pain for the past week which is similar to what she had with her previous hemorrhage. Vitals normal on arrival. She does take propranolol for a history of anxiety. Normal blood pressure. Afebrile. Patient appears nontoxic. Abdomen soft and very minimally tender in the left lower quadrant. Will check screening labs, perform pelvic exam and discuss with [employer] on-call. Pelvic exam notes light to medium bleeding, no clots and no signs of heavy active pulsatile bleeding. 1045 --labs reviewed and unremarkable. Hemoglobin 12. Normal platelets and electrolytes. Urine test negative. Case discussed with [employer] on-call Dr. Segovia -agrees that patient's bleeding likely result of recent removal of her Brodhead ring coinciding with her menses. He does not see any indication for repeat hemoglobin testing at this time. Patient feels good at this time. She feels good to go home. Advised to follow-up with primary care doctor and [employer] for reevaluation as needed and to return here with any worsening symptoms. Medical Records Medical records reviewed: Yes I reviewed the patient's medical records. Lab Data Lab results reviewed: Yes I reviewed the patient's lab results. Labs: Laboratory Tests Range/Units 08/04/19 08/04/19 08/04/19 10:05 10:05 10:05 WBC (4.4-10.8) k/cumm 4.72 RBC (4.00-5.20) m/cumm 4.28 Hgb (12.0-15.5) g/dL 12.4 Hct (36.0-46.0) % 39.3 MCV (80-95) fL 91.8 MCH (27.0-33.0) pg 29.0 MCHC (32.0-36.0) g/dL 31.6 L RDW (11.7-14.6) % 15.6 H Plt Count (130-400) x1000/uL 296 MPV (8.0-11.0) fL 9.3 Immature Gran % 0.2 Neutrophils % 43.9 Lymphocytes % 46.6 Monocytes % 8.1 Eosinophils % 0.8 Basophils % 0.4 Absolute Neutrophils (1.2-6.7) k/cumm 2.07 Absolute Lymphocytes (1.2-3.4) k/cumm 2.20 Absolute Monocytes (0.11-0.7) k/cumm 0.38 Absolute Eosinophils (0.0-0.7) k/cumm 0.04 Absolute Basophils (0.0-0.2) k/cumm 0.02 Sodium (136-145) mmol/L 139 Potassium (3.5-5.1) mmol/L 3.5 Chloride (98-107) mmol/L 105 Carbon Dioxide (21.0-32.0) mmol/L 26.5 Anion Gap (3-11) mmol/L 7.5 BUN (7-18) mg/dL 14 Creatinine (0.55-1.02) mg/dL 0.80 Estimated GFR/1.73 m2 (mL/min/1.73m2) >= 60.00 Glucose (74-106) mg/dL 83 Calcium (8.5-10.1) mg/dL 8.7 Total Bilirubin (0.2-1.0) mg/dL 0.3 AST (15-37) U/L 16 ALT (14-59) U/L 24 Alkaline Phosphatase (46-116) U/L 61 Total Protein (6.4-8.2) g/dL 7.8 Albumin (3.4-5.0) g/dL 4.0 Patient ABO/Rh A Positive Antibody Screen Negative HPI General Mode of arrival: ambulatory. Date/Time Provider Initiated Documentation: 08/04/19 09:32. Limitations to Documentation: no limitations. Information obtained by: patient. History of Present Illness 34 year old F presents to the emergency department with the chief complaint of heavy vaginal bleeding, described as moderate, and is localized to the abdomen (minimal LLQ abd pain x 1 week). Patient started experiencing this day(s) (bleeding x 1 day) and it has been constant. No relieving factors improve symptom(s), No exacerbating factors reported . Patient notes denies chest pain, cough, diaphoresis, fever/chills, headaches, loss of appetite, malaise, nausea/vomiting, rash, seizure, shortness of breath, syncope and weakness. Patient did receive the following treatments prior to arrival, none Related Data Home Medications Medication Instructions Recorded Confirmed cetirizine 10 mg PO DAILY PRN 06/10/19 08/04/19 polyethylene glycol 3350 [Miralax] 17 g PO DAILY 06/10/19 08/04/19 propranolol 60 mg PO DAILY 06/10/19 08/04/19 sumatriptan succinate [Imitrex] 100 mg PO ONCE PRN 06/10/19 08/04/19 sertraline 25 mg tablet 25 mg PO DAILY #30 tab 06/26/19 08/04/19 prednisone 20 mg PO DAILY 08/04/19 08/04/19 sulfamethoxazole-trimethoprim 1 tab PO BID 08/04/19 08/04/19 [Bactrim DS] Previous Rx's Medication Instructions Recorded sertraline 25 mg tablet 25 mg PO DAILY #30 tab 06/26/19 Allergies Allergy/AdvReac Type Severity Reaction Status Date / Time No Known Allergies Allergy Unverified 08/04/19 09:38 General Stated Complaint: [employer] REGGIE: 2 Review of Systems All systems reviewed & are unremarkable except as noted in HPI and below Constitutional Constitutional: Reports as per HPI, Denies chills and Denies fever(s) Eyes Eyes: Denies blurry vision ENT Ears, Nose, Mouth, and Throat: Reports dizziness, Denies sore throat and Denies throat swelling Cardiovascular Cardiovascular: Denies chest pain and Denies dyspnea Respiratory Respiratory: Denies cough and Denies dyspnea Gastrointestinal Gastrointestinal: Denies abdominal pain, Denies diarrhea and Denies vomiting Genitourinary Genitourinary: Denies hematuria and Denies dysuria Comments: heavy vaginal bleeding Musculoskeletal Musculoskeletal: Denies back pain and Denies numbness Integumentary/Breasts Skin/Breast: Denies lesions and Denies rash Neurologic Neurologic: Reports dizziness, Denies focal weakness and Denies numbness Allergic/Immunologic Allergic/Immunologic: Denies throat swelling [facility] Medical History Anxiety (Chronic) Fissure in ano (Acute) Gestational hypertension (Acute) Hemorrhoids (Acute) 06/2019 . Patient referred to general surgery for evaluation. She was encouraged to stop her supplemental iron and continue MiraLAX to prevent constipation History of diet controlled gestational diabetes mellitus (GDM) (Acute) hemorrhage (Acute) Reactive airway disease (Acute) Secondary to seasonal allergies uses an inhaler as needed Retained products of conception (Acute) Surgical History H/O laparoscopy (Chronic) History of cholecystectomy (Chronic) History of D&C (Acute) 06/10/2019 for retained products of conception after 04/18/2019 Social History Smoking/Tobacco Use Status: Never Alcohol Intake: current Alcohol Intake frequency: holidays/special occasions only Drug use: Never Substance use type: does not use Adopted: No Household members: spouse and children Number of Children: 2 Education Level: college Do you need help understanding health information?: Never 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 [facility] Sexually active: Yes Current gender identity: female Do you feel safe at home: Yes Do you feel safe in your relationship?: Yes Additional Social history: 04/18/2019 spontaneous vaginal delivery of male named Michael Daughter Todd 10 years old Exam Const General: cooperative, healthy appearing and no acute distress HENMT Head: normal to inspection Face and sinus: normal facial exam Eyes General: appearance normal, both eyes and all related structures EOM: EOM intact bilaterally Neck Neck: normal visual inspection and No submandibular swelling Lymphatic: no lymphadenopathy noted Chest Chest: normal inspection of the chest and no tenderness Resp Effort & Inspection: normal respiratory effort and able to speak in complete sentences Auscultation: clear to auscultation bilaterally Cardio Rate: regular rate Rhythm: regular rhythm GI Inspection: normal to inspection Palpation: soft, not firm, not rigid and tender in the LLQ (minimal) Auscultation: normal bowel sounds Back/Spine/Pelvis Thoracic/Lumbar Spine: thoracic and lumbar spine normal to inspection Pelvis: no pain with anterior-posterior compression Skin General skin exam: no rashes or lesions noted Neuro General: alert, awake and oriented x3 Cognition: normal cognition Speech: speech normal Motor: muscle tone normal throughout Sensory Exam: no sensory deficits noted Extrem General: normal to inspection, full ROM, normal capillary refill, no calf tenderness bilaterally and no edema Psych Appearance: grossly normal Mental Status: mental status grossly normal Speech and Movement: speech and movement normal Affect: normal affect Course Vital Signs Vital signs: Vital Signs Temperature 97.9 F 08/04/19 09:32 Pulse 72 08/04/19 09:32 Blood Pressure 125/68 08/04/19 09:32 Pulse Oximetry 100 08/04/19 09:32 Temperature 97.9 F 08/04/19 09:32 Temperature Source Temporal Artery Scan 08/04/19 09:32 Pulse 72 08/04/19 09:32 Respiratory Effort Non-Labored 08/04/19 09:37 Blood Pressure 125/68 08/04/19 09:32 Blood Pressure Position Supine 08/04/19 09:32 Pulse Oximetry 100 08/04/19 09:32 Oxygen Delivery Method Room Air 08/04/19 09:32 Oxygen Flow Rate 0 08/04/19 09:32 Pain Level 7 08/04/19 09:32
[2019-08-04] MEDS: Normal Saline 1,000 ML 1000 ML IV (10:10)
[2019-08-04 10:19] LABS: Abs Immature Grans 0.01 k/cumm (0.0-0.09); Absolute Basophil Count 0.02 k/cumm (0.0-0.2); Absolute Eosinophil Count 0.04 k/cumm (0.0-0.7); Absolute Monocyte Count 0.38 k/cumm (0.11-0.7); Absolute Neutrophil Count 2.07 k/cumm (1.2-6.7); Basophils % 0.4; Eosinophils % 0.8; HCT 39.3 % (36.0-46.0); HGB 12.4 g/dL (12.0-15.5); Immature Grans % 0.2; Lymphocytes % 46.6; Mean Corp. HGB Concentration 31.6 g/dL (32.0-36.0); Mean Corpuscular Volume 91.8 fL (80-95); Mean Platelet Volume 9.3 fL (8.0-11.0); Monocytes % 8.1; Neutrophils % 43.9; Platelet Count 296 x1000/uL (130-400); RBC 4.28 m/cumm (4.00-5.20); RBC Distribution Width 15.6 % (11.7-14.6); White Blood Cell Count 4.72 k/cumm (4.4-10.8)
[2019-08-04 10:37] LABS: ALT 24 U/L (14-59); AST 16 U/L (15-37); Alkaline Phosphatase 61 U/L (46-116); Anion Gap 7.5 mmol/L (3-11); BUN 14 mg/dL (7-18); Bilirubin, Total 0.3 mg/dL (0.2-1.0); CO2 26.5 mmol/L (21.0-32.0); Calcium 8.7 mg/dL (8.5-10.1); Chloride 105 mmol/L (98-107); Glucose 83 mg/dL (74-106); Potassium 3.5 mmol/L (3.5-5.1); Sodium 139 mmol/L (136-145); Total Protein 7.8 g/dL (6.4-8.2)
[2019-08-04] MEDS: Normal Saline Flush 10 ML SYR IVP (11:28)
== END 2019-08-04 11:25 | disposition home or self-care (01) ==
PROVIDERS: Emergency Provider Physician Assistant; PCP Nurse Practitioner Family
DX: N93.9 Abnormal uterine and vaginal bleeding, unspecified (principal); N92.0 Excessive and frequent menstruation with regular cycle; R10.32 Left lower quadrant pain
CPT/HCPCS: 36415; 80053; 81025; 86850; 86900; 86901; 96360; 99284; 85025

== ENCOUNTER 2019-08-20 02:13 | Outpatient (CLI) | payer OTHER, SELFPAY ==
--- NOTE | 2019-08-20 12:48 | DI.US_ITS ---
EXAM: US PELVIS AND TRANSVAGINAL CLINICAL HISTORY: MENORRHAGIA N92.0 TECHNIQUE: Ultrasound performed using standard protocol. Transabdominal and transvaginal exams per formed. COMPARISON: No exams were available for comparison FINDINGS: The uterus measures 6.3 x 3.3 x 5.1 cm. The endometrial stripe measures 2 millimeters in thickness. A NuvaRing is noted at the cervix. Patient is status post right oophorectomy. The left ovary appea rs normal. There is no free fluid or hydronephrosis. IMPRESSION: Pelvic ultrasound is within normal limits.
== END 2019-08-20 02:33 ==
PROVIDERS: PCP Nurse Practitioner Family; Visit Provider Obstetrics & Gynecology Gynecology
DX: N92.0 Excessive and frequent menstruation with regular cycle (principal); Z90.721 Acquired absence of ovaries, unilateral
CPT/HCPCS: 76830; 76856

== ENCOUNTER 2020-05-06 11:12 | Outpatient (REF) | payer OTHER, SELFPAY ==
--- NOTE | 2020-05-06 10:30 | PAPFT_PTH ---
PATIENT: Servando Alonso LOC: [facility] U#:[id number] AGE/SX: 35/F ROOM: RE05/06/[address]: Tracy Henley : 1985 BED: DIS: 05/06/2020 SPEC #: [id number] RECD: 05/06/20 12:51 STATUS: MICHELE REQ #: [id number] GEENA: 05/06/20 10:[address]: Tracy Henley DEPT: [facility] Cytology RECD BY: Abimbola Nathan ENTERED: 05/06/20 12:52 SP TYPE: PAPFT OTHR DR: See Cottrell Tissues: 1 - CX/ENDOCX FOR PAP SMEARS Procedures: PAP THIN PREP/UVM Screening HPV DNA PROBE Comments: [id number]
== END 2020-05-06 11:32 ==
LOC: LBN 11:12
PROVIDERS: PCP Nurse Practitioner Family; Visit Provider Obstetrics & Gynecology Gynecology
DX: Z12.4 Encounter for screening for malignant neoplasm of cervix (principal); Z11.51 Encounter for screening for human papillomavirus (HPV)
CPT/HCPCS: 88142; 87624

== ENCOUNTER 2020-07-12 02:30 | Outpatient (CLI) | payer OTHER, SELFPAY ==
[2020-07-13 16:50] LABS: COVID-19 RT-PCR UVMMC Result Negative (Negative)
== END 2020-07-12 02:50 ==
PROVIDERS: PCP Nurse Practitioner Family; Visit Provider Obstetrics & Gynecology Gynecology
DX: Z11.59 Encounter for screening for other viral diseases (principal); Z01.818 Encounter for other preprocedural examination
CPT/HCPCS: U0003

== ENCOUNTER 2020-07-12 03:16 | Outpatient (CLI) | payer OTHER, SELFPAY ==
[2020-07-12 10:27] LABS: Abs Immature Grans 0.01 10^3/uL (0.0-0.06); Absolute Basophil Count 0.02 10^3/uL (0.0-0.2); Absolute Eosinophil Count 0.02 10^3/uL (0.0-0.7); Absolute Lymphocyte Count 2.14 10^3/uL (1.2-3.4); Absolute Monocyte Count 0.43 10^3/uL (0.1-0.8); Absolute Neutrophil Count 5.28 10^3/uL (1.2-6.7); Basophils % 0.3; Eosinophils % 0.3; HCT 39.9 % (36.0-46.0); HGB 13.1 g/dL (11.2-15.7); Immature Grans % 0.1; Lymphocytes % 27.1; MCH 31.3 pg (27.0-33.0); MCHC 32.8 % (32.0-36.0); MCV 95.5 fL (80-95); MPV 9.5 fL (8.0-11.0); Monocytes % 5.4; Neutrophils % 66.8; Nucleated RBC 0 %; Platelet Count 319 10^3/uL (130-400); RBC 4.18 10^6/uL (3.93-5.22); RDW 12.2 % (11.7-14.6); RDW-SD 42.8 fL
[2020-07-12 10:45] LABS: Anion Gap 6.6 mmol/L (3-11); CO2 28.4 mmol/L (21.0-32.0); Chloride 104 mmol/L (98-107); Potassium 3.8 mmol/L (3.5-5.1); Sodium 139 mmol/L (136-145)
[2020-07-12 10:54] LABS: HCG Qual (Serum) Negative
== END 2020-07-12 03:36 ==
PROVIDERS: PCP Nurse Practitioner Family; Visit Provider Obstetrics & Gynecology Gynecology
DX: R10.2 Pelvic and perineal pain (principal); N94.6 Dysmenorrhea, unspecified; Z01.818 Encounter for other preprocedural examination; Z01.812 Encounter for preprocedural laboratory examination
CPT/HCPCS: 36415; 80051; 86850; 86900; 86901; 84703; 85025

== ENCOUNTER 2020-07-15 14:37 | Observation (INO) | payer OTHER, SELFPAY ==
--- NOTE | 2020-07-14 18:41 | W.PM.HP.N ---
Date of service: 07/15/20 Time of Service: 11:38 Assessment and Plan Assessment and plan (1) Pelvic pain: Status: Acute Assessment and plan: no relief with OCPs. Nl pelvic u/s. Pt requests definitive therapy. (2) Dysmenorrhea: Status: Acute (3) Preop examination: Status: Acute Assessment and plan: Informed consent was reviewed with pt. I discussed risk of infection, bleeding from injury to bowel, bladder, and blood vessels, along with surrounding structures including ureters. She was counseled that in the event of of any of the stated complications a larger skin incision may be required. Pt wishes her remaining ovary conserved. Her questions were answered and consent signed. History of Present Illness History of Present Illness Chief Complaint: Pelvic pain Narrative: Pt is a 35yo female who has experienced chronic pelvic pain and dysmenorrhea since 04/2019. At that time she underwent a spontaneous vaginal delivery which was complicated by hemorrhage requiring transfusion 4 units packed red blood cells and eventually a D&C at [facility] for retained placental fragments, requiring an additional transfusion of 2 units of PRBC. She has been treated with OCPs which have been helpful but have not eliminated her pelvic discomfort. Pelvic u/s performed at [facility] 05/28/20 showed a normal appearing uterus and a thin endometrial stripe with minute punctate uterine calcifications. Her remaining left ovary was also normal in appearance. I discussed with the patient my concern that she had adenomyosis and that even with OCPs her uterine pain would persist. She has requested a hysterectomy with ovarian conservation. Review of Systems Constitutional Constitutional: Reports as per HPI Cardiovascular Cardiovascular: Reports system reviewed and no additional complaints, except as documented Respiratory Respiratory: Reports system reviewed and no additional complaints, except as documented Gastrointestinal Gastrointestinal: Reports system reviewed and no additional complaints, except as documented and Denies change in bowel habits Genitourinary Genitourinary: Denies abnormal vaginal bleeding, Reports dyspareunia (x24hr post-coital) and Reports dysmenorrhea Musculoskeletal Musculoskeletal: Reports system reviewed and no additional complaints, except as documented Psychiatric Psychiatric: Reports system reviewed and no additional complaints, except as documented [facility] Medical History Anxiety Contraception 11/2019 stops NuvaRing. Begin OCPs. Endometritis 08/2019. Delayed. Heavy bleeding uterine cramping despite NuvaRing and thin endometrial lining. Rx with Augmentin times 2W Fissure in ano Gestational hypertension Hemorrhoids 06/2019 . Patient referred to general surgery for evaluation. She was encouraged to stop her supplemental iron and continue MiraLAX to prevent constipation History of diet controlled gestational diabetes mellitus (GDM) hemorrhage Reactive airway disease Secondary to seasonal allergies uses an inhaler as needed Retained products of conception Seasonal allergies Surgical History H/O laparoscopy History of cholecystectomy x3 History of D&C 06/10/2019 for retained products of conception after 04/18/2019 Social History (Updated 07/14/20 @ 19:02 by Tracy Henley MD) Smoking/Tobacco Use Status: Never Smoking risk assessment performed?: Yes Alcohol Intake: current Alcohol Intake frequency: a few times a week Alcohol type: wine Drug use: Never Substance use type: does not use Adopted: No Household members: spouse, children and other Details: H-Owen, D- Carson, S- Michael Number of Children: 2 Education Level: college Do you need help understanding health information?: Never 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[facility] Sexually active: Yes Current gender identity: female Do you feel safe at home: Yes Do you feel safe in your relationship?: Yes Additional Social history: 04/18/2019 spontaneous vaginal delivery of male infant named Michael Daughter Todd 10 years old Meds Home Medications and Allergies Home Medications Medication Instructions Recorded Confirmed Type cetirizine 10 mg PO DAILY PRN 06/10/19 07/15/20 History polyethylene glycol 3350 [Miralax] 17 g PO DAILY 06/10/19 07/15/20 History propranolol 60 mg PO DAILY 06/10/19 07/15/20 History sumatriptan succinate [Imitrex] 100 mg PO ONCE PRN 06/10/19 07/13/20 History sertraline 25 mg tablet 25 mg PO DAILY #30 tab 06/26/19 07/13/20 Rx norethindrone 1 mg-ethinyl 1 tab PO DAILY #84 tab 05/06/20 07/15/20 Rx estradiol 20 mcg (21)-iron 75 mg (7) tablet albuterol sulfate [ProAir HFA] 2 puff INHALATION PRN PRN 07/13/20 07/13/20 History fluticasone propionate 2 spray INTRANASAL BID PRN 07/13/20 07/15/20 History montelukast 10 mg PO DAILY 07/13/20 07/15/20 History Allergies Allergy/AdvReac Type Severity Reaction Status Date / Time No Known Allergies Allergy Unverified 07/15/20 08:52 Exam Const General: no acute distress Nutritional Appearance: average body habitus Orientation: alert, awake and oriented x3 Neck Neck: normal visual inspection Thyroid: thyroid normal Resp Effort & Inspection: normal respiratory effort Auscultation: clear to auscultation bilaterally Cardio Rate: regular rate Rhythm: regular rhythm General: deferred Skin General skin exam: no rashes or lesions noted Extrem General: normal to inspection and full ROM Psych Appearance: grossly normal Mental Status: mental status grossly normal Speech and Movement: speech and movement normal Mood: congruent mood COVID-19 Screening Have you, or household traveled for leisure in last 14 days?: No Had IN PERSON contact w/suspected or confirmed C-19 person: No
[2020-07-15] VITALS (14 sets, daily range): BP systolic 91–125; BP diastolic 51–87; PULSE 66–88; RESP 11–22; TEMP 36.2–36.7; O2SAT 97–100
[2020-07-15] MEDS: Lactated Ringers 1,000 ML 125 ML IV ×2 (10:14→16:05)
[2020-07-15] MEDS: ceFAZolin 2 GM/50 ML BAG IVPB (11:57)
[2020-07-15] MEDS: Bupivacaine 0.25% Pres-Free 30 ML VIAL (12:43)
--- NOTE | 2020-07-15 14:30 | UTER_PTH ---
PATIENT: Servando Alonso LOC: [facility] U#:[id number] AGE/SX: 35/F ROOM: OBS.303 RE07/15/[address]: Tracy Henley : 1985 BED: A DIS: 07/16/2020 SPEC #: [id number] RECD: 07/15/20 17:29 STATUS: MICHELE REQ #: [id number] GEENA: 07/15/20 14:[address]: Tracy Henley DEPT: Surgical Specimen RECD BY: Abimbola Nathan ENTERED: 07/15/20 17:30 SP TYPE: UTER OTHR DR: See Cottrell Tissues: 1 - UTERUS W OR W/O OVARIES(NOT TUMOR/PROLAPSE) Procedures: GROSS AND MICRO LEVEL 5 Comments: [id number]
[2020-07-15] MEDS: NALBUPHINE 5 MG in Normal Saline 50 ML 100 MG IVPB ×2 (16:00→21:52)
[2020-07-15] MEDS: oxyCODONE 5 mg/Acetaminophen 325 mg TAB PO (16:19)
[2020-07-15] MEDS: diphenhydrAMINE 25 MG CAP PO (18:38)
[2020-07-15] MEDS: Docusate Sodium 100 MG CAP PO (19:49)
[2020-07-15] MEDS: Ketorolac 30 MG/ML VIAL IVP (19:49)
[2020-07-15] MEDS: Normal Saline Flush 10 ML SYR IV (19:50)
[2020-07-15] MEDS: Acetaminophen 500 MG TAB PO (21:56)
[2020-07-16] MEDS: Lactated Ringers 1,000 ML 125 ML IV (00:04)
[2020-07-16] MEDS: diphenhydrAMINE 25 MG CAP PO (02:39)
[2020-07-16] MEDS: Normal Saline Flush 10 ML SYR IV ×2 (02:40→07:52)
[2020-07-16] MEDS: Ketorolac 30 MG/ML VIAL IVP ×2 (02:40→07:53)
[2020-07-16] MEDS: NALBUPHINE 5 MG in Normal Saline 50 ML 100 MG IVPB (03:11)
[2020-07-16 03:14] VITALS: BP 105/63; PULSE 66; RESP 16; TEMP 36.3; O2SAT 97
[2020-07-16 07:20] VITALS: BP 114/70; PULSE 62; RESP 16; TEMP 36.6; O2SAT 99
[2020-07-16] MEDS: Montelukast 10 MG TAB PO (07:50)
[2020-07-16] MEDS: Docusate Sodium 100 MG CAP PO (07:51)
[2020-07-16] MEDS: Acetaminophen 500 MG TAB PO ×2 (07:52→14:06)
[2020-07-16] MEDS: oxyCODONE 5 mg/Acetaminophen 325 mg TAB PO ×2 (10:40→15:04)
[2020-07-16 11:29] VITALS: BP 121/72; PULSE 56; RESP 16; TEMP 36.8; O2SAT 98
--- NOTE | 2020-07-16 14:01 | DSE_ITS ---
Date of service: 07/16/20 Time of Service: 14:01 DS: Diagnosis Discharge Diagnosis (1) Pelvic pain: Status: Acute (2) Dysmenorrhea: Status: Acute Discharge Plan Disposition Patient Disposition: HOME Condition: Improving Discharge Details Reason For Visit: LAPAROSCOPIC VAGINAL HYSTERECTOMY & R SALPINGECTOM Admit Date/Time: 07/15/20 14:37 Admit Provider: Tracy Henley Attending Provider: Tracy Henley Primary Care Provider: See Cottrell Hospital Course Hospital Course: Patient has a history of pelvic pain and dysmenorrhea. She was admitted the morning of surgery underwent the above-stated procedure. She was discharged home on postop day 1 tolerating a regular diet, voiding independently, and pain well controlled. The plan is to have her follow-up in approximately 2 weeks for postop assessment. She will be discharged home with instructions to use ibuprofen every 6 hours and Percocet 1 tablet every 4-6 hours. Home Meds and New Rx's Prescriptions: No Action sertraline 25 mg tablet 25 mg PO DAILY Qty: 30 RF: 1 norethindrone-e.estradiol-iron [Junel FE 09/01 (28)] 1 mg-20 mcg (21)/75 mg (7) tablet 1 tab PO DAILY Qty: 84 RF: 4 polyethylene glycol 3350 [Miralax] 17 gram Powder In Packet 17 g PO DAILY RF: 0 propranolol 60 mg Capsule,Extended Release 24 Hr 60 mg PO DAILY RF: 0 sumatriptan succinate [Imitrex] 100 mg Tablet 100 mg PO ONCE PRNRF: 0 cetirizine 10 mg Capsule 10 mg PO DAILY PRNRF: 0 montelukast 10 mg tablet 10 mg PO DAILY RF: 0 albuterol sulfate [ProAir HFA] 90 mcg/actuation Hfa Aerosol Inhaler 2 puff INHALATION PRN PRNRF: 0 fluticasone propionate 50 mcg/actuation [place],Suspension 2 spray INTRANASAL BID PRNRF: 0 Discharge Instructions Additional Instructions: Make appoint with Dr. Henley approximately 2 weeks for a postop check. You may take ibuprofen 600 mg every 6 hours as needed for pain. You also may use plain Tylenol. In the event of stronger pain is prescription available in your pharmacy for Percocet 5/325 1 tablet every 4-6 hours Activity:: Activity as Tolerated Equipment/Supplies:: No Equipment Needed Diet:: As Tolerated Discharge Orders Discharge Orders: Discharge Order (Routine); Ordered 07/16/20 Ordered By: Tracy Henley DS: Summary Status at Discharge Functional status at discharge: independent ambulation Overall status at discharge: patient is progressing back to baseline Mental Status: mental status grossly normal Speech and Movement: speech and movement normal Mood: congruent mood Affect: normal affect Exam Const General: no acute distress Nutritional Appearance: overweight Orientation: alert, awake and oriented x3 Resp Effort & Inspection: normal respiratory effort Auscultation: clear to auscultation bilaterally Cardio Rate: regular rate Rhythm: regular rhythm GI Inspection: normal to inspection and scar (Well approximated no ecchymosis or induration. Skin glue present) Palpation: soft, no masses and nontender General: deferred Skin General skin exam: no rashes or lesions noted Extrem General: normal to inspection and full ROM Psych Appearance: grossly normal Mental Status: mental status grossly normal Speech and Movement: speech and movement normal Mood: congruent mood Affect: normal affect DS: Data Vitals/I&O Vitals and I&O: Vital Signs Temperature 98.2 F 07/16/20 11:29 Temperature Source Oral 07/16/20 11:29 Pulse 56 L 07/16/20 11:29 Pulse Rhythm Regular 07/16/20 07:44 Respiratory Rate 16 07/16/20 11:29 Respiratory Effort 07/16/20 07:44 Respiratory Depth Normal 07/16/20 07:44 Respiratory Pattern Normal 07/16/20 07:44 Blood Pressure 121/72 07/16/20 11:29 Pulse Oximetry 98 07/16/20 11:29 Respiratory End-tidal CO2 32 07/15/20 14:35 Oxygen Delivery Method Room Air 07/16/20 11:29 Oxygen Flow Rate 0 07/16/20 11:29 Pain Level 3 07/16/20 11:29 Intake & Output 07/15/20 07/16/20 07/16/20 23:59 11:59 23:59 Intake Total 1781.0 / 1781.0 3108.417 / 3468.417 360 / 3468.417 Output Total 1750 / 1750 3275 / 3275 Balance 31.0 / 31.0 -166.583 / 193.417 360 / 193.417 Intake: IV 1151.0 / 1151.0 2048.417 / 2048.417 Oral 630 / 630 1060 / 1420 360 / 1420 Output: Urine 1700 / 1700 3275 / 3275 Estimated Blood Loss 50 / 50 Other: Urine Color Pale Yellow Urine Appearance Clear Clear Urine Odor Normal Emesis Description None Voiding Methods Toilet [facility] Medical History (Updated 07/16/20 @ 14:02 by Tracy Henley MD) Anxiety Contraception 11/2019 stops NuvaRing. Begin OCPs. Endometritis 08/2019. Delayed. Heavy bleeding uterine cramping despite NuvaRing and thin endometrial lining. Rx with Augmentin times 2W Fissure in ano Gestational hypertension Hemorrhoids 06/2019 . Patient referred to general surgery for evaluation. She was encouraged to stop her supplemental iron and continue MiraLAX to prevent constipation History of diet controlled gestational diabetes mellitus (GDM) hemorrhage Reactive airway disease Secondary to seasonal allergies uses an inhaler as needed Retained products of conception Seasonal allergies Surgical History (Updated 07/16/20 @ 14:03 by Tracy Henley MD) H/O laparoscopy History of cholecystectomy x3 History of D&C 06/10/2019 for retained products of conception after 04/18/2019 History of laparoscopic-assisted vaginal hysterectomy 07/15/2020 with bilateral salpingectomy Social History (Updated 07/14/20 @ 19:02 by Tracy Henley MD) Smoking/Tobacco Use Status: Never Smoking risk assessment performed?: Yes Alcohol Intake: current Alcohol Intake frequency: a few times a week Alcohol type: wine Drug use: Never Substance use type: does not use Adopted: No Household members: spouse, children and other Details: H-Owen, D- Grayling, S- Michael Number of Children: 2 Education Level: college Do you need help understanding health information?: Never 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
[2020-07-16] MEDS: Ibuprofen 600 MG TAB PO (14:06)
[2020-07-16 15:30] VITALS: BP 128/79; PULSE 68; RESP 16; TEMP 37.1; O2SAT 98
--- NOTE | 2020-07-21 12:10 | W.PM.OP ---
Date of service: 07/21/20 Time of Service: 12:11 Operative Note Operative Note DATE OF PROCEDURE: 07/15/20 PROCEDURE: Laparoscopic assisted vaginal hysterectomy with left salpingectomy SURGEON: Tracy Henley HEALTH SUPPORT SPECIALIST: Ivet Goetz ANESTHESIA: GETA and spinal ESTIMATED BLOOD LOSS: 100 PATHOLOGY: other (uterus, cervix, left fallopian tube) COMPLICATIONS: None Patient was transported to: PACU Patient's condition: stable Indications: Pt is a 35yo female who has experienced chronic pelvic pain and dysmenorrhea since 04/2019. Findings: Right adnexa surgically absent. Left adnexa normal in appearance. Filmy adhesion arising from serosa of fundus and adherent to L culdesac. Prominent left uterine vein and artery complex at the base of the lower uterine segement. Nl upper abdomen and normal appendix. Procedure Description: Patient was taken to the operating room where she was placed in the sitting position and spinal anesthesia was administered without difficulty. She was then placed in the dorsal supine position and general endotracheal anesthesia was administered. She was then placed in the dorsal lithotomy position in yellowfin stirrups with SCDs in place. After being prepped and draped in the usual sterile fashion a surgical timeout was performed. She received 2 g of Ancef prior to skin incision. Villa catheter was placed to gravity drainage. A bivalve speculum was placed in the vagina the anterior lip of the cervix was grasped with a single-tooth tenaculum and a uterine manipulator was introduced into the uterus through the cervix and left in place. Attention was then turned to the patient's abdomen. The inferior umbilicus was infiltrated with quarter percent Marcaine without epinephrine. A scalpel was then used to make an vertical incision in the vertical fold. Two penetrating towel clips were used to tent up the skin and through the periumbilical incision a Veres needle was introduced into the abdomen and intra-abdominal placement confirmed by a drop in the intra-abdominal pressure. Once a pneumoperitoneum was established a 12 mm Visiport was placed under direct visualization and intra-abdominal placement confirmed by use of the laparoscope. Patient was then placed in Trendelenburg position. At two sites approximately 6 cm diagonally from the umbilical incision the skin was infiltrated with quarter percent Marcaine without epinephrine, incised with a scalpel and two 5 mm lower ports were placed under direct visualization. After careful inspection of the pelvis and determining that the course of both ureters were distant from the operative site a LigaSure electrocautery device was used to sequentally clamp, cauterize and incise the left fallopian tube from from the mesosalpinx to the left uterine cornua. The left broad ligament was then sequentially clamped, cauterized and the both the left round ligament and ovarian suspensory ligament were transected and the pedicles noted to be hemostatic. The insertion of the left uterine artery/venous complex into the left lower uterine segment was clamped and cauterized in 3 contiguous locations. The Ligasure device was then used to incise the vesico-uterine peritoneum off of the lower uterine segment and retract the bladder away from the lower uterine segment. Attention was then turned to the contralateral round ligament which was clamped, cauterized and transected with the Ligasure device. This allowed access to the remaining broad ligament which was clamped, cauterized and transected in a sequential fashion. The uterine vessel complex insertions at the lower uterine segement were not as prominent as on the left lower uterine segment and were easily cauterized. Decision was made to proceed with the vaginal portion of the case. Laparoscopic instruments were removed from the ports , the pneumoperitoneum was reduced, and the area was covered with sterile drape. A weighted vaginal speculum was placed in the vagina and the anterior posterior lips of the cervix were grasped with Briana clamps. The body of the cervix was infiltrated with 1% lidocaine with dilute Epinphrine The epithelium of the cervix was incised in a circumferential fashion using Bovie electrocautery. The posterior cul-de-sac was entered sharply and through the incision a long billed weighted speculum was placed. The left and right uterosacral ligament complexes were clamped,transected, and suture-ligated which was held long. This allowed sufficient mobilization of the vesicouterine fascia to identify a tissue plane and enter the anterior cul-de-sac sharply. Through this incision a curved [place] retractor was inserted and used to retract bladder away from the operative field. The remaining right and left broad ligaments were sequentially clamped, cauterized, and transected and the specimen was delivered and passed off of the operative field. The peritoneum was reapproximated with a pursestring suture using 2-0 Vicryl and the vaginal cuff was reapproximated in a vertical fashion with a running suture of 0 Vicryl with care taken to reapproximate the uterosacral ligament complex to the vaginal epithelium with the previously placed 0 Vicryl sutures. Instruments removed from the vagina and attention was again turned to the abdomen where a pneumoperitoneum was reestablished and the pelvis inspected using the laparoscope. The vaginal cuff was intact and hemostatic as were the other pedicles. The instruments were removed from the port sites, the pneumoperitoneum deflated and the ports removed. The fascia of the periumbilical skin incision was closed with interrupted suture of 0 Vicryl. The skin of the port site incisions were reapproximated with a subcuticular closure of 4-0 Vicry and and covered with skin glue. Patient was placed in the dorsal supine position awakened extubated and transported recovery area in stable condition. All sponge lap needle counts correct x2.
== END 2020-07-16 15:55 | disposition home or self-care (01) ==
LOC: OBS 15:35
PROVIDERS: Admitting Provider Obstetrics & Gynecology Gynecology; PCP Nurse Practitioner Family; Visit Provider Obstetrics & Gynecology Gynecology
PROC: 0UT9FZZ Resection of Uterus, Via Natural or Artificial Opening With Percutaneous Endoscopic Assistance (ICD-10-PCS; CPT 58552; principal; 2020-07-15 11:30)
DX: N94.6 Dysmenorrhea, unspecified (principal); R10.2 Pelvic and perineal pain; F41.9 Anxiety disorder, unspecified; J45.909 Unspecified asthma, uncomplicated
CPT/HCPCS: 58552; 96360; 96361; NC; 88307; G0378; J0690; J1100; J1885; J2001; J2250; J2405; J2704; J3010; J3490

== ENCOUNTER 2023-02-05 07:14 | Day surgery (SDC) | payer OTHER, SELFPAY ==
[2023-02-05] VITALS (8 sets, daily range): BP systolic 102–135; BP diastolic 52–83; PULSE 60–78; RESP 12–22; TEMP 36.2–36.6; O2SAT 97–100; BMI 33.0
[2023-02-05] MEDS: Lactated Ringers 1,000 ML 80 ML IV (07:58)
--- NOTE | 2023-02-05 08:02 | W.ANESPRE ---
General Info Date of Service Date Performed: 02/05/23 Height: 5 ft 6 in Weight: 92.8 kg Body Mass Index (BMI): 33.0 Surgical Procedure: Operation Date: 02/05/23 09:10 Proposed Procedure Side Surgeon p Mid Urethral Sling, TVT vs TOT Aurelio El MD Meds Allergies and Home Medications Allergies Allergy/AdvReac Type Severity Reaction Status Date / Time No Known Allergies Allergy Verified 02/05/23 07:39 Home Medication Medication Instructions Recorded polyethylene glycol 3350 17 gram 17 g PO DAILY 06/10/19 oral powder packet (Miralax) propranolol 60 mg capsule,24 60 mg PO DAILY migraines 06/10/19 hr,extended release sumatriptan succinate 100 mg 100 mg PO ONCE PRN 06/10/19 tablet (Imitrex) albuterol sulfate 90 mcg/actuation 2 puff inhalation PRN PRN 07/13/20 aerosol inhaler (ProAir HFA) fluticasone propionate 50 2 spray intranasal BID PRN 07/13/20 mcg/actuation nasal spray,suspension montelukast 10 mg tablet 10 mg PO DAILY 07/13/20 ibuprofen 600 mg tablet 600 mg PO Q6H PRN pain #30 tabs 07/16/20 duloxetine 60 mg capsule,delayed 60 mg PO DAILY 10/30/22 release (Cymbalta) multivitamin (Daily Multi-Vitamin 1 tab PO DAILY 10/30/22 tablet) cetirizine 10 mg capsule (Zyrtec) 10 mg PO DAILY PRN 02/02/23 duloxetine 30 mg capsule,delayed 60 mg PO 02/05/23 release linaclotide 72 mcg capsule mcg 02/05/23 (Linzess) Current Visit Medications: Current Medications Generic Name Dose Route Start Last Admin Trade Name Freq PRN Reason Stop Dose Admin Ringer's Solution 1,000 mls @ 80 mls/hr 02/05/23 06:00 02/05/23 07:58 IV 02/05/23 23:59 80 mls/hr INFUSION RIZWAN Administration Cefazolin Sodium/Dextrose 2 gm in 50 mls @ 100 mls/hr 02/05/23 06:00 Ancef Duplex IVPB 02/05/23 23:59 PREOP RIZWAN IV Miscellaneous Supplies 1 each 02/05/23 06:00 Iv Access IV 06/26/23 23:59 DIRECTED RIZWAN Sodium Chloride 0 ml 02/05/23 06:00 Normal Saline Flush 10 Ml Syr IV 02/05/23 23:59 PRN PRN Sodium Chloride 0 ml 02/05/23 06:00 Normal Saline 10 Ml Vial IJ 02/05/23 23:59 DIRECTED PRN Sterile Water 0 ml 02/05/23 06:00 Water,Injection,Sterile 10 Ml Vial IJ 02/05/23 23:59 DIRECTED PRN PFSH Active Problems Active Problems: Problem Status Onset Code Mixed stress and urge urinary incontinence N39.46 Right axillary swelling M79.89 Stress incontinence N39.3 History of laparoscopic-assisted vaginal hysterectomy Z90.710 Dysmenorrhea N94.6 Blood loss anemia D50.0 Pelvic pain R10.2 Contraception Z30.9 Endometritis N71.9 Fissure in ano K60.2 Hemorrhoids K64.9 Anxiety F41.9 History of D&C Z98.890 Reactive airway disease J45.909 History of cholecystectomy Z90.49 H/O laparoscopy Z98.890 Gestational hypertension O13.9 History of diet controlled gestational diabetes mellitus (GDM) Z86.32 hemorrhage O72.1 Retained products of conception Medical History Medical History Seasonal allergies Tobacco Smoking/Tobacco Use Status: Never Alcohol Alcohol Intake: current Alcohol intake frequency: a few times a week Alcohol type: wine Substance Use Substance use: Never Substance use type: does not use Vital Signs and Lab Results Vital Signs Most Recent Vital Signs in EMR: Most Recent Vital Signs Temp Pulse Resp BP Pulse Ox 36.6 C 77 17 124/81 97 02/05/23 07:44 02/05/23 07:44 02/05/23 07:44 02/05/23 07:44 02/05/23 07:44 Lab Results Blood Type / Crossmatch: No Data to Display Complete Blood Count: No Data to Display Complete Metabolic Panel: No Data to Display Liver Function Panel: No Data to Display Coagulation Panel: No Data to Display Cardiac Panel: No Data to Display Arterial Blood Gas: No Data to Display Venous Blood Gas: No Data to Display Pancreas Panel: No Data to Display Thyroid Panel: No Data to Display Infectious Disease: No Data to Display Blood Cultures: No Data to Display Toxicology Panel: No Data to Display Panel: No Data to Display Anesthesia Assessment and Plan Anesthesia History Personal History: No History of Anesthesia Complications Family History: No Family History of Anesthesia Complications Exercise Tolerance Exercise Tolerance: Metabolic Equivalents>4 Pertinent Negatives Pertinent Negatives: No Symptoms of GERD, No Major Cardiovascular Symptoms or Complaints, No Major Pulmonary Symptoms or Complaints and No History of CVA/TIA Cardiac & Pulmonary Exam Cardiac Exam: Normal S1/S2 Heart Sounds Pulmonary Exam: Clear Bilateral Breath Sounds Implantable Cardiac Device Does patient have a Pacemaker or an ICD?: No Airway Exam Known Difficult Airway: No Mallampati Class: 2 Mouth Opening: Normal (> 3cm) Thyromental Distance: Less than 3 cm Neck Range of Motion: Full ROM Neck Circumference: Normal Teeth Condition: Normal Dentition ASA Classification ASA Score: ASA 2 Emergency Case?: No NPO Status NPO Status: NPO Clears >2 hours, Solids >8 hours Status Status: History of Hysterectomy Anesthesia Plan Resuscitation Status: Full Code Anesthesia Technique: Spinal Anesthesia Airway Planned: Natural Airway Monitors Used: Standard Monitors
--- NOTE | 2023-02-05 08:40 | HPE_ITS ---
Date of service: 02/05/23 Time of Service: 08:53 Assessment and Plan Assessment and plan (1) Stress incontinence: Status: Acute Assessment and plan: We will move ahead with placement of a midurethral sling History of Present Illness Narrative: Servando is a 37-year-old female referred [facility] or concerns of stress incontinence. Patient underwent hysterectomy approximately 2 years ago and since then has had bladder prolapse as well as stress incontinence.? She notes prior to the hysterectomy she only had urge incontinence but now is experiencing both.? She goes through approximately 2 pads per day. She feels that she can empty and then moved and will have urinary leakage.? She denies dysuria, need to strain, slow or weak stream or gross hematuria.? He does not have an extensive history of bladder or kidney infections.? She has no kidney stones.? She does however suffer from constipation and uses Linzess as well as MiraLAX. She has done pelvic floor physical therapy without any improvement.? She is interested in moving forward with surgical intervention and is agreeable to a m idurethral sling. Review of Systems Narrative: No fevers or chills No vision change or dysphasia No diabetes or thyroid Reactive airway. No hemoptysis No chest pain or palpitations Chronic constipation. No nausea, vomiting, hepatitis, ulcers, jaundice No seizures, strokes or peripheral neuropathy No bleeding disorders or anemia No gout PFSH All Active Problems Mixed stress and urge urinary incontinence (Acute) Right axillary swelling (Acute) Stress incontinence (Acute) History of laparoscopic-assisted vaginal hysterectomy (Acute) 07/15/2020 with bilateral salpingectomy Dysmenorrhea (Acute) Blood loss anemia (Acute) Pelvic pain (Acute) Contraception (Acute) 11/2019 stops NuvaRing. Begin OCPs. Endometritis (Acute) 08/2019. Delayed. Heavy bleeding uterine cramping despite NuvaRing and thin endometrial lining. Rx with Augmentin times 2W Fissure in ano (Acute) Hemorrhoids (Acute) 06/2019 . Patient referred to general surgery for evaluation. She was encouraged to stop her supplemental iron and continue MiraLAX to prevent constipation Anxiety (Chronic) History of D&C (Acute) 06/10/2019 for retained products of conception after 04/18/2019 Reactive airway disease (Acute) Secondary to seasonal allergies uses an inhaler as needed History of cholecystectomy (Chronic) x3 H/O laparoscopy (Chronic) Gestational hypertension (Acute) History of diet controlled gestational diabetes mellitus (GDM) (Acute) hemorrhage (Acute) Retained products of conception (Acute) Medical History Seasonal allergies Social History Smoking/Tobacco Use Status: Never Smoking risk assessment performed?: Yes Alcohol Intake: current Alcohol Intake frequency: a few times a week Alcohol type: wine Drug use: Never Substance use type: does not use Adopted: No Household members: spouse, children and other Details: H-Owen, D- Todd, S- Michael Number of Children: 2 Education Level: college Do you need help understanding health information?: Never 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 [employer] Sexually active: Yes Current gender identity: female Do you feel safe at home: Yes Do you feel safe in your relationship?: Yes Additional Social history: 04/18/2019 spontaneous vaginal delivery of male infant named Michael Daughter Todd 10 years old Meds Allergies and Home Medications Allergies Allergy/AdvReac Type Severity Reaction Status Date / Time No Known Allergies Allergy Verified 02/05/23 07:39 Home Medications Medication Instructions Recorded Confirmed Type polyethylene glycol 3350 17 gram 17 g PO DAILY 06/10/19 02/05/23 History oral powder packet (Miralax) propranolol 60 mg capsule,24 60 mg PO DAILY migraines 06/10/19 02/05/23 History hr,extended release sumatriptan succinate 100 mg 100 mg PO ONCE PRN 06/10/19 02/05/23 History tablet (Imitrex) albuterol sulfate 90 mcg/actuation 2 puff inhalation PRN PRN 07/13/20 02/05/23 History aerosol inhaler (ProAir HFA) fluticasone propionate 50 2 spray intranasal BID PRN 07/13/20 02/05/23 History mcg/actuation nasal spray,suspension montelukast 10 mg tablet 10 mg PO DAILY 07/13/20 02/05/23 History ibuprofen 600 mg tablet 600 mg PO Q6H PRN pain #30 tabs 07/16/20 02/05/23 Rx duloxetine 60 mg capsule,delayed 60 mg PO DAILY 10/30/22 02/05/23 History release (Cymbalta) multivitamin (Daily Multi-Vitamin 1 tab PO DAILY 10/30/22 02/05/23 History tablet) cetirizine 10 mg capsule (Zyrtec) 10 mg PO DAILY PRN 02/02/23 02/05/23 History duloxetine 30 mg capsule,delayed 60 mg PO 02/05/23 History release linaclotide 72 mcg capsule mcg 02/05/23 History (Linzess) Exam Const General: cooperative Neck Neck: supple Resp Effort & Inspection: normal respiratory effort Auscultation: clear to auscultation bilaterally Cardio Rate: regular rate Rhythm: regular rhythm GI Palpation: soft Neuro General: patient alert, patient awake and patient oriented x3 Results Last Vital Signs Temp 36.6 C 02/05/23 07:44 Pulse 77 02/05/23 07:44 Resp 17 02/05/23 07:44 BP 124/81 02/05/23 07:44 Pulse Ox 97 02/05/23 07:44 Time Spent Time spent with Patient: <40 minutes Time was spent: other
[2023-02-05] MEDS: ceFAZolin 2 GM/50 ML BAG IVPB (09:19)
[2023-02-05] MEDS: Lidocaine 2% Jelly 6 ML SYR (09:19)
[2023-02-05] MEDS: Lidocaine 1% Pres-Free 30 ML VIAL (09:19)
--- NOTE | 2023-02-05 10:05 | W.PM.DSUDISC ---
Date of service: 02/05/23 Time of Service: 10:05 Discharge Plan Disposition Patient Disposition: Home Condition: Stable Discharge Details Reason For Visit: stress incontinence Attending Provider: Aurelio El Primary Care Provider: See Cottrell Home Meds and New Rx's Prescriptions: New ketorolac 10 mg tablet 10 mg PO Q6H PRN5 Days Qty: 20 0RF No Action duloxetine [Cymbalta] 60 mg capsule,delayed release(DR/EC) 60 mg PO DAILY multivitamin [Daily Multi-Vitamin] Tablet 1 tab PO DAILY ibuprofen 600 mg tablet 600 mg PO Q6H PRN (Reason: pain) Qty: 30 3RF polyethylene glycol 3350 [Miralax] 17 gram Powder In Packet 17 g PO DAILY propranolol 60 mg Capsule,Extended Release 24 Hr 60 mg PO DAILY sumatriptan succinate [Imitrex] 100 mg Tablet 100 mg PO ONCE PRN montelukast 10 mg tablet 10 mg PO DAILY Patient Comments: TAKE ONE TABLET BY MOUTH EVERY DAY albuterol sulfate [ProAir HFA] 90 mcg/actuation Hfa Aerosol Inhaler 2 puff INHALATION PRN PRN fluticasone propionate 50 mcg/actuation [place],Suspension 2 spray INTRANASAL BID PRN Zyrtec 10 mg Capsule 10 mg PO DAILY PRN duloxetine 30 mg capsule,delayed release(DR/EC) 60 mg PO Patient Comments: TAKE TWO CAPSULES BY MOUTH EVERY MORNING AND TAKE ONE CAPSULE BY MOUTH IN THE EVENING Linzess 72 mcg capsule Discharge Instructions Additional Instructions: prescription for Toradol sent to pharmacy - may take with tylenol but not with NSAIDs no lifting over 10 pounds until followup visit followup @ 2 to 3 weeks Nothing per vagina until followup Activity:: no lifting over 10 pounds Shower/Bathe:: 24 hours Diet:: As Tolerated Discharge Orders Discharge Orders: Discharge Order (Routine); Ordered 02/05/23 Ordered By: Aurelio El DS: Diagnosis Discharge Diagnosis (1) Stress incontinence: Status: Acute
--- NOTE | 2023-02-05 10:10 | W.PM.OP ---
Date of service: 02/05/23 Time of Service: 10:10 Operative Note Operative Note DATE OF PROCEDURE: 02/05/23 PRE-OP DIAGNOSIS: stress urinary incontinence POST-OP DIAGNOSIS: same PROCEDURE: midurethral sling SURGEON: Aurelio El ANESTHESIA TYPE: Spinal Refer to Anesthesia Record ESTIMATED BLOOD LOSS: 30 PATHOLOGY: none sent COMPLICATIONS: None Patient was transported to: PACU Implants: Altis sling Indications: This is a 37-year-old woman who has a history of mixed urinary incontinence. She had undergone hysterectomy and the stress portion of her incontinence worsened. She presents now for placement of a mid urethral sling. Findings: Normal-appearing bladder Procedure Description: The patient was given preoperative IV antibiotics and brought to the operating room on 02/05/2023. After successful induction of spinal anesthesia, she was placed in the dorsal lithotomy position. Her genitalia and perineum were prepped and draped sterilely. A 16 [place] Villa catheter was passed through the urethra into the bladder and the catheter balloon was inflated with 10 cc of sterile water. We then identified the mid urethral area on the anterior vaginal wall. A combination of 1% lidocaine and saline was injected into the space between the vaginal wall and the urethra. A midline incision was made over the mid urethra and a plane was developed on either side of the urethra out to the obturator membrane. We then prepared our mid urethral sling and passed the slings needles through the obturator membrane. This allowed the bolsters to secure and the needles could then be removed. Once the needles had been passed, the Villa catheter was removed and cystoscopy was performed. We used a 22 [place] cystoscope and a 70 degree lens. No injuries to the bladder or bladder neck were identified. The Villa catheter was then reintroduced and a spacer was placed between the sling and the urethra itself. Tensioning of the sling was performed and the tensioning suture was then transected. The spacer was removed and the vaginal mucosa was closed with 3-0 Vicryl sutures. The Villa catheter was then removed. The patient tolerated the procedure well.
--- NOTE | 2023-02-05 11:13 | W.ANESPOSTOP ---
Postoperative Evaluation Date, Time and Location Date Performed: 02/05/23 Time Performed: 11:13 Patient Location: Day Surgery Unit Vital Signs Most Recent Imported Vital Signs: Most Recent Vital Signs Temp Pulse Resp BP Pulse Ox 36.5 C 69 17 114/83 100 02/05/23 10:34 02/05/23 10:34 02/05/23 10:34 02/05/23 10:34 02/05/23 10:34 Pain Score Most Recent Pain Score: Most Recent Pain Score Pain Level 0 02/05/23 10:34 Assessment Mental Status: Awake (Alert & Oriented to Patient Baseline) Airway and Respiratory Function: Patent airway with normal (patient baseline) respiratory exam Cardiovascular Function: Hemodynamically Stable Hydration Status: Adequately Hydrated Nausea & Vomiting: No Nausea or Vomiting Pain: Pain is tolerable per patient Peripheral Nerve Block: Patient did not receive a nerve block
[2023-02-05] MEDS: traMADol 50 MG TAB PO (11:19)
== END 2023-02-05 13:42 | disposition home or self-care (01) ==
PROVIDERS: PCP Nurse Practitioner Family; Visit Provider Urology
PROC: (CPT 57288; principal; 2023-02-05 09:00)
DX: N39.3 Stress incontinence (female) (male) (principal)
CPT/HCPCS: 57288; C1781; J0690; J1100; J1885; J2001; J2250; J2405; J2704